=== PATIENT | male | born 1945 | race African-American/Black ===

== ENCOUNTER 2017-09-09 19:30 | Emergency (ER) | payer MEDICARE | END 2017-09-09 20:14 | LOC: D.ER 19:30 | DX: Z00.00 Encounter for general adult medical examination without abnormal findings (principal) ==

== ENCOUNTER 2020-09-30 06:43 | Inpatient (IN) | payer MEDICARE ==
[~2020-09-30] VITALS: Ht 188 cm; Wt 63.6 kg
[2020-09-30 09:14] LABS: ANION GAP 17.1 mmol/L (8-16); APTT 33.9 SECONDS (22.8-39.4); CALCIUM 9.4 mg/dL (8.5-10.1); CARBON DIOXIDE 24.3 mmol/L (21.0-32.0); INR 1.54 (0.85-1.17); POTASSIUM - SERUM 4.4 mmol/L (3.5-5.1); PROTIME 17.2 SECONDS (11.6-15.0)
[2020-09-30 09:19] LABS: HEMOGLOBIN 14.7 g/dL (13.5-17.5); LYMPHOCYTE ABS# 2.59 10x3/uL (1.32-3.57); MCH 29.7 pg (26.0-34.0); MCHC 34.2 g/dL (31.0-37.0); MCV 86.9 fL (80.0-100.0); MEAN PLATELET VOLUME 10.5 fL (7.4-10.4); NEUTROPHIL ABS# 17.26 10x3/uL (1.78-5.38); PLATELET COUNT 222 10x3/uL (130-400); RBC 4.95 10x6/uL (4.20-6.10); RDW 12.8 % (11.5-14.5); WBC 21.8 10x3/uL (4.8-10.8)
[2020-09-30 09:21] LABS: ALBUMIN 3.2 g/dL (3.4-5.0); BILIRUBIN - TOTAL 1.29 mg/dL (0.2-1.3); PROTEIN - SERUM 8.3 g/dL (6.4-8.2)
[2020-09-30 11:22] LABS: LYMPHOCYTES 12 % (15-50); MONOCYTES 15 % (2-11); NEUTROPHILS 70 % (40-80); PLATELET ESTIMATE NORMAL
--- NOTE | 2020-09-30 13:13 | NUR ---
PT MEDS STARTED WHEN SCANNED, PT DID NOT HAVE ROOM. INFORMED PHARMACY THT HIS MEDS MAY NEED TO BE RETIMED
--- NOTE | 2020-09-30 13:39 | NUR ---
CANNOT OBTAIN ACCURATE O2, HAS ORDERD ABG TO VERIFY O2 SAT
--- NOTE | 2020-09-30 14:00 | NUR ---
PT SAT IS 95% WITH ABG VERIFICATION
[2020-09-30 14:01] VITALS: BP 142/85
--- NOTE | 2020-09-30 14:14 | NUR ---
PT HAS CONSULT WITH [facility] AND [facility] HAS ALREADY OBTAIN CONFIRMATION THAT KNOWS AND WILL BE HERE LATER TO ASSESS PT
--- NOTE | 2020-09-30 15:20 | NUR ---
PEDIAL PULSES NOT OBTAINED, USED DOPPLER, MD PRESENT AND AWARE NO PULSES IN BILATERAL FEET.
--- NOTE | 2020-09-30 16:37 | NUR ---
pt HAS SKIN TEAR ON COCCYX, ADN BLISTER ON PENIS.
--- NOTE | 2020-09-30 16:52 | NUR ---
PT WEARING scd'S
[2020-09-30 17:06] VITALS: BP 147/81
[2020-09-30 20:30] VITALS: BP 119/93
[2020-09-30 22:30] VITALS: BP 120/76
[2020-10-01 00:30] VITALS: BP 127/76
[2020-10-01 02:30] VITALS: BP 155/77
[2020-10-01 04:47] VITALS: BP 119/92
[2020-10-01 06:47] VITALS: BP 119/73
--- NOTE | 2020-10-01 07:10 | NUR ---
PATIENT SITTING UP IN BED WATCHING TV. NO C/O.
[2020-10-01 07:51] LABS: LYMPHOCYTES 4.5 % (15-50); MCH 29.6 pg (26.0-34.0); MCHC 33.8 g/dL (31.0-37.0); MCV 87.6 fL (80.0-100.0); MEAN PLATELET VOLUME 10.8 fL (7.4-10.4); NEUTROPHILS 87.9 % (40-80); PLATELET COUNT 196 10x3/uL (130-400); RDW 12.9 % (11.5-14.5); WBC 18.3 10x3/uL (4.8-10.8)
[2020-10-01 08:04] LABS: HEMOGLOBIN 11.5 g/dL (13.5-17.5); RBC 3.88 10x6/uL (4.20-6.10)
[2020-10-01 08:07] LABS: ANION GAP 15.1 mmol/L (8-16); BILIRUBIN - TOTAL 0.84 mg/dL (0.2-1.3); CALCIUM 7.7 mg/dL (8.5-10.1); CARBON DIOXIDE 21.8 mmol/L (21.0-32.0); PHOSPHOROUS 2.6 mg/dL (2.5-4.9); POTASSIUM - SERUM 3.9 mmol/L (3.5-5.1); VANCOMYCIN - RANDOM 3.4 ug/mL (10.0-20.0)
[2020-10-01 08:13] LABS: CREATININE - SERUM 1.1 mg/dL (0.6-1.3)
[2020-10-01 08:15] LABS: ALBUMIN 2.3 g/dL (3.4-5.0); PROTEIN - SERUM 5.6 g/dL (6.4-8.2)
[2020-10-01 09:00] VITALS: BP 107/84
--- NOTE | 2020-10-01 12:30 | NUR ---
BATH AND LINEN CHANGE. BUTTOCKS HAVE DRY SCALING SKIN WITH OPEN SEVERAL OPEN ABRASION TYPE WOUNDS. LOTION TO DRY SKIN AND MEPILEX TO OPEN WOUNDS.
--- NOTE | 2020-10-01 13:35 | NUR ---
PT IN ROOM. PATIENT HAS URINE ON SHEETS AND GOWN. ABSORBENT BRIEF OFFERED AND PT AGREEABLE. LINENS CHANGED. MEPILEX HAS NOT ADHERED DUE TO SCALY SKIN.
[2020-10-01 13:53] VITALS: BMI 20.8
--- NOTE | 2020-10-01 21:00 | NUR ---
PT ARRIVED TO FLOOR VIA STRETCHER. TRANSFERED SELF TO BED. MULTIPLE WOUNDS TO BODY, FINGERS AND FEET, SEE ASSESSMENT. PT HAD VOIDED ON HIMSELF. CHANGED LINENS, JENNY CARE PROVIDED, CHANGED TO NEW BRIEF. PROVIDED PT WITH URINAL. PT STATES NO PAIN AT THIS TIME. IV RIGHT FA INFUSING NS @ 125. PROVIDED TURKEY SANDWICH AND COFFEE. DENIES OTHER NEEDS. CL IN REACH
[2020-10-02 01:33] VITALS: BP 120/72; Ht 188 cm; Wt 63.6 kg
[2020-10-02 04:00] VITALS: BP 115/65
--- NOTE | 2020-10-02 05:45 | NUR ---
PT PROVIDED COFFEE AND COLA
[2020-10-02 06:17] LABS: BASOPHILS 0.1 % (0-2); EOSINOPHILS 0.1 % (0-7); HEMATOCRIT 33.4 % (42.0-54.0); IMMATURE GRANULOCYTES 1.2 % (0-5); LYMPHOCYTE ABS# 1.34 10x3/uL (1.32-3.57); LYMPHOCYTES 7.6 % (15-50); MCH 29.3 pg (26.0-34.0); MCHC 32.9 g/dL (31.0-37.0); MCV 88.8 fL (80.0-100.0); MEAN PLATELET VOLUME 11.4 fL (7.4-10.4); MONOCYTES 11.5 % (2-11); NEUTROPHIL ABS# 13.99 10x3/uL (1.78-5.38); NEUTROPHILS 79.5 % (40-80); PLATELET COUNT 211 10x3/uL (130-400); RBC 3.76 10x6/uL (4.20-6.10); RDW 13.2 % (11.5-14.5); WBC 17.6 10x3/uL (4.8-10.8)
[2020-10-02 06:19] LABS: ALBUMIN 1.9 g/dL (3.4-5.0); ALKALINE PHOSPHATASE 69 U/L (30-120); ALT (SGPT) 81 U/L (10-68); BILIRUBIN - TOTAL 0.58 mg/dL (0.2-1.3); CALCIUM 7.9 mg/dL (8.5-10.1); CARBON DIOXIDE 22.6 mmol/L (21.0-32.0); CHLORIDE - SERUM 103 mmol/L (98-107); GLUCOSE 126 mg/dL (74-106); MAGNESIUM - SERUM 1.8 mg/dL (1.8-2.4); PHOSPHOROUS 2.2 mg/dL (2.5-4.9); POTASSIUM - SERUM 3.5 mmol/L (3.5-5.1); PROTEIN - SERUM 6.2 g/dL (6.4-8.2); SODIUM 135 mmol/L (136-145); eGFR NON AFRICAN AMERICAN 78 mL/min (90-120)
[2020-10-02 06:52] LABS: CALC OSMOLALITY 273 mosm/kg (275-300); UREA NITROGEN 17 mg/dL (7-18)
--- NOTE | 2020-10-02 08:06 | NUR ---
PATIENT ASLEEP IN BED, EASILY AWAKENED, NO NEEDS VOICED AT THIS TIME. CONTINUE WITH PLAN OF CARE
[2020-10-02 08:33] VITALS: BP 127/74
--- NOTE | 2020-10-02 12:55 | NUR ---
NS INFUSION RATE CHANGED TO 75/HR PER ORDER.
[2020-10-02 13:12] LABS: HEPATITIS C ANTIBODY <0.1 S/CO RAT (0.0-0.9)
[2020-10-02 14:00] VITALS: BP 129/70
--- NOTE | 2020-10-02 14:36 | NUR ---
OT NOTE: PT WITH LESS CONFUSION NOTED TODAY. ORIENTED X PERSON AND PLACE..ONLY 1 DAY OFF FOR DATE. PERFORMED B UE AROM EXS; GROSS MOTOR ROM AND COORDINATION TASKS. BED MOB AND EOB SITTING TO IMPROVE TRUNK STRENGTH AND ENDURANCE. ADL TRAINING BUT PT CONT TO HAVE DEFECITS DUE TO DECREASED MOTOR COORD IN HANDS. LIS NAVA, OTR/L [phone]
[2020-10-02 17:07] VITALS: BP 136/76
--- NOTE | 2020-10-02 20:20 | NUR ---
AWAKE,ALERT WATCHING TV QUEITLY. NO DISTRESS NOTED. NO COMPLIANTS VOICED.IV TO RFA INTACT WITHOUT REDNESS OR EDEMA NOTED.CL IN REACH
[2020-10-02 20:21] VITALS: BP 120/85; BP 131/70
[2020-10-03 00:22] VITALS: BP 117/71
--- NOTE | 2020-10-03 00:28 | NUR ---
Pt was found to have BM on him, bedding and all around toilet seat. Pt assisted to clean and change and then back to bed.
--- NOTE | 2020-10-03 03:00 | NUR ---
I have reviewed this patient and I concur with the Shift Assessment completed by the Licensed Practical Nurse today this shift.
[2020-10-03 05:26] VITALS: BP 132/76
[2020-10-03 05:52] LABS: BASOPHILS 0.1 % (0-2); EOSINOPHILS 0.5 % (0-7); HEMATOCRIT 33.5 % (42.0-54.0); HEMOGLOBIN 10.9 g/dL (13.5-17.5); IMMATURE GRANULOCYTES 0.8 % (0-5); LYMPHOCYTE ABS# 1.58 10x3/uL (1.32-3.57); LYMPHOCYTES 9.1 % (15-50); MCH 28.9 pg (26.0-34.0); MCHC 32.5 g/dL (31.0-37.0); MCV 88.9 fL (80.0-100.0); MONOCYTES 5.8 % (2-11); NEUTROPHIL ABS# 14.58 10x3/uL (1.78-5.38); NEUTROPHILS 83.7 % (40-80); PLATELET COUNT 248 10x3/uL (130-400); RBC 3.77 10x6/uL (4.20-6.10); RDW 13.2 % (11.5-14.5); WBC 17.4 10x3/uL (4.8-10.8)
[2020-10-03 06:39] LABS: ALBUMIN 1.8 g/dL (3.4-5.0); ALKALINE PHOSPHATASE 82 U/L (30-120); ALT (SGPT) 75 U/L (10-68); BILIRUBIN - TOTAL 0.45 mg/dL (0.2-1.3); CALCIUM 7.6 mg/dL (8.5-10.1); CARBON DIOXIDE 24.4 mmol/L (21.0-32.0); CHLORIDE - SERUM 101 mmol/L (98-107); GLUCOSE 146 mg/dL (74-106); MAGNESIUM - SERUM 1.5 mg/dL (1.8-2.4); PHOSPHOROUS 2.3 mg/dL (2.5-4.9); POTASSIUM - SERUM 3.5 mmol/L (3.5-5.1); PROTEIN - SERUM 6.3 g/dL (6.4-8.2); SODIUM 133 mmol/L (136-145); eGFR NON AFRICAN AMERICAN 78 mL/min (90-120)
[2020-10-03 06:40] LABS: CALC OSMOLALITY 267 mosm/kg (275-300); UREA NITROGEN 10 mg/dL (7-18)
[2020-10-03 08:10] VITALS: BP 113/64
--- NOTE | 2020-10-03 09:51 | NUR ---
PT ALERT AND ORIENTED, ASSISTED WITH STANDING ON SCALE, PT STATES HE'S FEELING A LITTLE WEAK THIS MORNING. TOOK ALL MEDICATIONS WITHOUT COMPLICATIONS. NO COMPLAINTS OR CONERNS AT THIS TIME. CL IN REACH, SRX2.
[2020-10-03 11:59] VITALS: BP 133/75
--- NOTE | 2020-10-03 13:59 | NUR ---
I have reviewed this patient and I concur with the Shift Assessment completed by the Licensed Practical Nurse today this shift.
[2020-10-03 17:21] VITALS: BP 119/73
--- NOTE | 2020-10-03 20:30 | NUR ---
LYING QUIETLY WITH NO DISTRESS NOTED. RESP UNALBORED. IV TO [place] INTACT WITHOUT REDNESS OR EDEMA NOTED. CL IN REACH
[2020-10-03 21:51] VITALS: BP 150/77
[2020-10-04 01:18] VITALS: BP 150/87
--- NOTE | 2020-10-04 04:11 | NUR ---
I have reviewed this patient and I concur with the Shift Assessment completed by the Licensed Practical Nurse today this shift.
[2020-10-04 04:30] LABS: BASOPHILS 0.1 % (0-2); EOSINOPHILS 0.3 % (0-7); HEMATOCRIT 35.2 % (42.0-54.0); HEMOGLOBIN 11.9 g/dL (13.5-17.5); IMMATURE GRANULOCYTES 0.5 % (0-5); LYMPHOCYTE ABS# 1.62 10x3/uL (1.32-3.57); LYMPHOCYTES 12.1 % (15-50); MCH 29.8 pg (26.0-34.0); MCHC 33.8 g/dL (31.0-37.0); MCV 88.2 fL (80.0-100.0); MEAN PLATELET VOLUME 10.1 fL (7.4-10.4); MONOCYTES 9.3 % (2-11); NEUTROPHIL ABS# 10.38 10x3/uL (1.78-5.38); NEUTROPHILS 77.7 % (40-80); PLATELET COUNT 271 10x3/uL (130-400); RBC 3.99 10x6/uL (4.20-6.10); RDW 13.1 % (11.5-14.5); WBC 13.4 10x3/uL (4.8-10.8)
[2020-10-04 04:55] LABS: ALBUMIN 1.7 g/dL (3.4-5.0); ALKALINE PHOSPHATASE 74 U/L (30-120); ALT (SGPT) 64 U/L (10-68); BILIRUBIN - TOTAL 0.36 mg/dL (0.2-1.3); CALC OSMOLALITY 266 mosm/kg (275-300); CALCIUM 7.6 mg/dL (8.5-10.1); CARBON DIOXIDE 25.7 mmol/L (21.0-32.0); CHLORIDE - SERUM 101 mmol/L (98-107); CREATININE - SERUM 0.9 mg/dL (0.6-1.3); GLUCOSE 101 mg/dL (74-106); MAGNESIUM - SERUM 1.6 mg/dL (1.8-2.4); POTASSIUM - SERUM 3.5 mmol/L (3.5-5.1); PROTEIN - SERUM 6.5 g/dL (6.4-8.2); SODIUM 134 mmol/L (136-145); UREA NITROGEN 10 mg/dL (7-18); eGFR NON AFRICAN AMERICAN 88 mL/min (90-120)
[2020-10-04 05:56] VITALS: BP 135/82
--- NOTE | 2020-10-04 07:24 | NUR ---
RESTING IN BED WITH EYES CLOSED, EASILY AROUSED TO SPEECH. IV LOCATED TO RIGHT UPPER ARM CURRENTLY RUNNING NS @ 75. NO CURRENT S/S OF DISTRESS, DENIES CURRENT NEEDS, WILL CONT TO MONITOR.
[2020-10-04 08:39] VITALS: BP 142/81
[2020-10-04 13:31] VITALS: BP 105/70
[2020-10-04 17:06] VITALS: BP 137/84
[2020-10-04 20:51] VITALS: BP 138/72
--- NOTE | 2020-10-04 21:00 | NUR ---
AWAKE,ALERT. NO COMPLAINTS VOICED. IV RESITED TO RFA WITH 22G X 1 ATTEMPT. TOLEREATED WELL. CL IN REACH
[2020-10-05 00:47] VITALS: BP 145/98
--- NOTE | 2020-10-05 05:50 | NUR ---
I have reviewed this patient and I concur with the Shift Assessment completed by the Licensed Practical Nurse today this shift.
[2020-10-05 06:34] LABS: BASOPHILS 0.2 % (0-2); EOSINOPHILS 0.4 % (0-7); HEMATOCRIT 34.8 % (42.0-54.0); HEMOGLOBIN 11.5 g/dL (13.5-17.5); IMMATURE GRANULOCYTES 0.7 % (0-5); LYMPHOCYTE ABS# 1.62 10x3/uL (1.32-3.57); LYMPHOCYTES 13.2 % (15-50); MCH 29.3 pg (26.0-34.0); MCV 88.8 fL (80.0-100.0); MEAN PLATELET VOLUME 10.1 fL (7.4-10.4); NEUTROPHILS 75.5 % (40-80); PLATELET COUNT 294 10x3/uL (130-400); RBC 3.92 10x6/uL (4.20-6.10); RDW 13.3 % (11.5-14.5); WBC 12.3 10x3/uL (4.8-10.8)
[2020-10-05 06:36] VITALS: BP 142/69
[2020-10-05 06:39] LABS: ALBUMIN 1.8 g/dL (3.4-5.0); ALKALINE PHOSPHATASE 72 U/L (30-120); ALT (SGPT) 53 U/L (10-68); BILIRUBIN - TOTAL 0.32 mg/dL (0.2-1.3); CALC OSMOLALITY 266 mosm/kg (275-300); CARBON DIOXIDE 25.4 mmol/L (21.0-32.0); CHLORIDE - SERUM 101 mmol/L (98-107); CREATININE - SERUM 0.8 mg/dL (0.6-1.3); GLUCOSE 104 mg/dL (74-106); MAGNESIUM - SERUM 1.5 mg/dL (1.8-2.4); POTASSIUM - SERUM 3.6 mmol/L (3.5-5.1); PROTEIN - SERUM 6.6 g/dL (6.4-8.2); SODIUM 134 mmol/L (136-145); UREA NITROGEN 9 mg/dL (7-18); eGFR NON AFRICAN AMERICAN > 90 mL/min (90-120)
--- NOTE | 2020-10-05 08:09 | NUR ---
PT AWAKE, LAYING ON BACK IN BED. NO NEEDS AT THIS TIME. STATES THERE IS SOME PAIN IN HIS TOES. CL IN REACH. WCTM
[2020-10-05 08:34] VITALS: BP 153/71
[2020-10-05 11:49] VITALS: BP 152/91
--- NOTE | 2020-10-05 14:05 | NUR ---
Rehab referral received. Patient chart has been reviewed and at this time, with patients current status and non extisting comorbidities, until this hospital stay , it is recommended that patient discharge to a SNF. Thank you for this referral. Elle Braxton LPN Rehab Computer Engineering Technologist
[2020-10-05 14:22] LABS: ERYTHROCYTE SEDIMENTATION RATE 119 mm/hr (0-20)
--- NOTE | 2020-10-05 15:15 | NUR ---
Nutrition follow-up: Pt receiving a low sodium diet PO intake poor at this time Labs reviewed; albumin low Wt: 160# +BM Recommendations: Pt may benefit from an appetite stimulant due to poor po intake RDN will order Ensure with meals Follow-up: 10/07/20
--- NOTE | 2020-10-05 15:24 | NUR ---
OT NOTE: PT COMPLETED BED MOB WITH SBA. PT COMPLETED SUPINE TO SIT WITH SBA-CGA. PT COMPLETED SITTING BALANCE AT EOB WITH SBA. PT REQUIRED MIN A FOR SAUL/NORIS BRIEFS. PT COMPLETED UB BATHING TASKS WITH MIN A. PT COMPLETED LB BATHING TASKS EXCLUDING FEET WITH MIN A. VALVE INSERTER STATED NOT TO STAND PT BUT HAVE HIM SIT AT EOB. NURSING NOTIFIED. [phone] THANK YOU,JESSICA LONDONO
[2020-10-05 15:55] VITALS: BP 138/75
[2020-10-05 19:52] VITALS: BP 141/76
--- NOTE | 2020-10-05 21:50 | NUR ---
PT RESTING IN BED. NO PAIN NOR DISTRESS ADDRESSED OR NOTED AT THIS TIME. BED IN LOWEST POSITON WITH ALARM ACTIVATED. CALL LIGHT IN REACH.
[2020-10-06] VITALS: BP 135/81
[2020-10-06 04:00] VITALS: BP 143/76
--- NOTE | 2020-10-06 05:58 | NUR ---
PT RESTED WELL THROUGHOUT SHIFT. BLOOD GLUCOSE WITHIN NORMAL LIMITS. NO NEEDS AT THIS TIME.
[2020-10-06 06:26] LABS: ALBUMIN 1.7 g/dL (3.4-5.0); ALKALINE PHOSPHATASE 68 U/L (30-120); ALT (SGPT) 46 U/L (10-68); BILIRUBIN - TOTAL 0.42 mg/dL (0.2-1.3); CALC OSMOLALITY 268 mosm/kg (275-300); CARBON DIOXIDE 24.7 mmol/L (21.0-32.0); CHLORIDE - SERUM 101 mmol/L (98-107); CREATININE - SERUM 0.9 mg/dL (0.6-1.3); GLUCOSE 113 mg/dL (74-106); POTASSIUM - SERUM 3.4 mmol/L (3.5-5.1); PROTEIN - SERUM 6.4 g/dL (6.4-8.2); SODIUM 135 mmol/L (136-145); UREA NITROGEN 8 mg/dL (7-18); eGFR NON AFRICAN AMERICAN 88 mL/min (90-120)
[2020-10-06 06:52] LABS: BASOPHILS 0.2 % (0-2); EOSINOPHILS 0.4 % (0-7); HEMATOCRIT 33.3 % (42.0-54.0); IMMATURE GRANULOCYTES 0.4 % (0-5); LYMPHOCYTE ABS# 1.09 10x3/uL (1.32-3.57); LYMPHOCYTES 9.2 % (15-50); MCH 29.2 pg (26.0-34.0); MCV 88.3 fL (80.0-100.0); MEAN PLATELET VOLUME 10.2 fL (7.4-10.4); MONOCYTES 10.6 % (2-11); NEUTROPHIL ABS# 9.33 10x3/uL (1.78-5.38); NEUTROPHILS 79.2 % (40-80); RBC 3.77 10x6/uL (4.20-6.10); RDW 13.2 % (11.5-14.5); WBC 11.8 10x3/uL (4.8-10.8)
[2020-10-06 06:53] LABS: PLATELET COUNT 355 10x3/uL (130-400)
--- NOTE | 2020-10-06 07:24 | NUR ---
PT AWAKE LAYING IN BED AT THIS TIME. CL IN REACH. BED ALARM ON. NO NEEDS AT THIS TIME. WCTM
[2020-10-06 09:03] LABS: MAGNESIUM - SERUM 1.8 mg/dL (1.8-2.4); VANCOMYCIN - TROUGH 11.6 ug/mL (10.0-20.0)
[2020-10-06 10:39] VITALS: BP 140/79
[2020-10-06 14:14] VITALS: BP 113/67
--- NOTE | 2020-10-06 14:59 | NUR ---
OT NOTE: PRACTICED BED MOB INCLUDING ROLLING SIDE TO SIDE AND SUPINE TO SIT/SIT TO SUPINE WITH MIN/MOD ASSIST; PERFORMED GROSS MOTOR EXS WITH UES TO IMPROVE ADLS. LIS NAVA, OTR/L [phone]
[2020-10-06 18:28] VITALS: BP 112/64
[2020-10-06 20:00] VITALS: BP 144/86
--- NOTE | 2020-10-06 20:26 | NUR ---
rec'd walking rounds chge of shift lying on left side eyes closed res. deep and even.will continue to monitor for any chges and follow current plan of care.
[2020-10-07] VITALS: BP 139/78
[2020-10-07 04:00] VITALS: BP 121/76
[2020-10-07 05:32] LABS: BASOPHILS 0.1 % (0-2); EOSINOPHILS 0.7 % (0-7); HEMATOCRIT 33.9 % (42.0-54.0); HEMOGLOBIN 11.1 g/dL (13.5-17.5); IMMATURE GRANULOCYTES 0.5 % (0-5); LYMPHOCYTE ABS# 1.48 10x3/uL (1.32-3.57); LYMPHOCYTES 13.8 % (15-50); MCH 28.9 pg (26.0-34.0); MCHC 32.7 g/dL (31.0-37.0); MCV 88.3 fL (80.0-100.0); MEAN PLATELET VOLUME 9.9 fL (7.4-10.4); MONOCYTES 9.4 % (2-11); NEUTROPHIL ABS# 8.13 10x3/uL (1.78-5.38); NEUTROPHILS 75.5 % (40-80); PLATELET COUNT 400 10x3/uL (130-400); RBC 3.84 10x6/uL (4.20-6.10); RDW 13.3 % (11.5-14.5); WBC 10.8 10x3/uL (4.8-10.8)
--- NOTE | 2020-10-07 05:52 | NUR ---
I have reviewed this patient and I concur with the Shift Assessment completed by the Licensed Practical Nurse today this shift.
[2020-10-07 06:12] LABS: ALBUMIN 1.7 g/dL (3.4-5.0); ALKALINE PHOSPHATASE 71 U/L (30-120); ALT (SGPT) 40 U/L (10-68); BILIRUBIN - TOTAL 0.42 mg/dL (0.2-1.3); CALC OSMOLALITY 268 mosm/kg (275-300); CALCIUM 8.4 mg/dL (8.5-10.1); CARBON DIOXIDE 24.8 mmol/L (21.0-32.0); CHLORIDE - SERUM 102 mmol/L (98-107); CREATININE - SERUM 0.8 mg/dL (0.6-1.3); GLUCOSE 98 mg/dL (74-106); PROTEIN - SERUM 6.5 g/dL (6.4-8.2); SODIUM 135 mmol/L (136-145); UREA NITROGEN 10 mg/dL (7-18); eGFR NON AFRICAN AMERICAN > 90 mL/min (90-120)
[2020-10-07 06:14] LABS: POTASSIUM - SERUM 4.1 mmol/L (3.5-5.1)
[2020-10-07 09:28] VITALS: BP 162/78
[2020-10-07 10:47] LABS: ERYTHROCYTE SEDIMENTATION RATE 125 mm/hr (0-20)
[2020-10-07 12:31] VITALS: BP 124/80
--- NOTE | 2020-10-07 13:43 | NUR ---
Nutrition reassessment: Diet order: low sodium PO intake 75-100% of some meals Labs reviewed Ht: 6'2" Wt: 146# IBW: 190# +/-10% BMI: 18.7 Labs reviewed Estimated needs: 8266-9952 kcal (25-35 kcal/kg Acual BW) 66-85 g protein (1.0-1.3 gm/kg Actual BW) 6700-3882 ml fluid - or per MD order Nutrition diagnosis: Moderate malnutrition of acute illness R/T frotsbitten feet AEB the following criteria: - BMI: 18.7 - 8% weight loss since admit - 160# bedscale on admit - now 146# bedscale Goals: - PO intake =/> 75% of meals, snacks - Meet at least 75% of estimate fluid needs - Stable wt with gradual increase to UBW of 162# Interventions: Will provide food choices and honor food preferences. Will offer and encourage increased protein intake Follow-up: 10/12/20
--- NOTE | 2020-10-07 15:36 | NUR ---
OT NOTE: PT COMPLETED SUPINE TO SIT WITH SBA. PT COMPLETED BUE AROM EXERCISES AT EOB WITH SBA. PT COMPLETED ORAL CARE WITH SETUP. PT COMPLETED FACE HYGIENE WITH SETUP. [phone] THANK YOU,JESSICA LONDONO
[2020-10-07 16:56] VITALS: BP 113/56
[2020-10-07 20:00] VITALS: BP 134/58
[2020-10-08 04:00] VITALS: BP 154/71
[2020-10-08 06:39] LABS: BASOPHILS 0.3 % (0-2); EOSINOPHILS 0.7 % (0-7); HEMATOCRIT 32.8 % (42.0-54.0); HEMOGLOBIN 10.6 g/dL (13.5-17.5); IMMATURE GRANULOCYTES 0.5 % (0-5); LYMPHOCYTE ABS# 1.63 10x3/uL (1.32-3.57); LYMPHOCYTES 15.3 % (15-50); MCH 28.3 pg (26.0-34.0); MCHC 32.3 g/dL (31.0-37.0); MCV 87.7 fL (80.0-100.0); MEAN PLATELET VOLUME 9.8 fL (7.4-10.4); NEUTROPHIL ABS# 7.73 10x3/uL (1.78-5.38); NEUTROPHILS 72.2 % (40-80); PLATELET COUNT 435 10x3/uL (130-400); RBC 3.74 10x6/uL (4.20-6.10); RDW 13.1 % (11.5-14.5); WBC 10.7 10x3/uL (4.8-10.8)
[2020-10-08 06:41] LABS: ALBUMIN 1.9 g/dL (3.4-5.0); ALKALINE PHOSPHATASE 72 U/L (30-120); ALT (SGPT) 35 U/L (10-68); BILIRUBIN - TOTAL 0.34 mg/dL (0.2-1.3); CALC OSMOLALITY 266 mosm/kg (275-300); CALCIUM 8.5 mg/dL (8.5-10.1); CHLORIDE - SERUM 101 mmol/L (98-107); CREATININE - SERUM 0.8 mg/dL (0.6-1.3); GLUCOSE 94 mg/dL (74-106); POTASSIUM - SERUM 4.3 mmol/L (3.5-5.1); PROTEIN - SERUM 5.9 g/dL (6.4-8.2); SODIUM 134 mmol/L (136-145); UREA NITROGEN 10 mg/dL (7-18); eGFR NON AFRICAN AMERICAN > 90 mL/min (90-120)
[2020-10-08 07:51] VITALS: BP 118/76
[2020-10-08 11:05] VITALS: BP 114/60
--- NOTE | 2020-10-08 14:32 | MORECARE ---
CASE MANAGEMENT DISCHARGE SUMMARY PATIENT: KATHRYN GAUTHIER UNIT: [id number] ADM DATE: 09/30/20 AGE: 75 : 47 SEX: M ROOM/BED: D.2205 AUTHOR: ELIZABETH PEARCE PHYSICIAN: REFERRING PHYSICIAN: JOHNNIE MOLINA MD DATE OF SERVICE: 10/08/20 Discharge Plan Patient Name: KATHRYN GAUTHIER [facility] [facility] 1945 Planned Disposition: Home with Home Health Anticipated Discharge Date: Discharge Date: Expected LOS: Initial Reviewer: [email or web address] Initial Review Date: 09/30/2020 Generated: 10/08/20 3:31 pm DCPIA - Discharge Planning Initial Assessment Updated by [email or web address]: Gisella Washington on 10/08/20 2:28 pm * Is the patient Alert and Oriented? Yes * PCP MERARY? TRISHA? * Pharmacy [facility] * Preadmission Environment Home Alone * ADLs Independent * Equipment None * Verbal permission to speak to the caregivers and representatives has been obtained from the patient. N/A * Community resources currently utilized None * Additional services required to return to the preadmission environment? Yes * Can the patient safely return to the preadmission environment? Yes * Has this patient been hospitalized within the prior 30 days at any hospital? No Patient Name: KATHRYN GAUTHIER Page [phone] at 1432 All edits/amendments must be made on the electronic document DICTATION DATE: 10/08/20 1431 SUPERVISOR MACHINE SETTER: DARRELL 10/08/20 1431 RPT#: [id number] DC DATE: STATUS: ADM IN [facility] [address] [place] [address] END OF REPORT
--- NOTE | 2020-10-08 14:40 | MORECARE ---
CASE MANAGEMENT DISCHARGE SUMMARY PATIENT: KATHRYN GAUTHIER UNIT: [id number] ADM DATE: 09/30/20 AGE: 75 : 47 SEX: M ROOM/BED: D.2205 AUTHOR: PORTIADOC PHYSICIAN: REFERRING PHYSICIAN: JOHNNIE MOLINA MD DATE OF SERVICE: 10/08/20 Discharge Plan Patient Name: KATHRYN GAUTHIER Facility: [facility]:[place] : 1945 Planned Disposition: Home with Home Health Anticipated Discharge Date: Discharge Date: Expected LOS: Initial Reviewer: [email or web address] Initial Review Date: 09/30/2020 Generated: 10/08/20 3:40 pm Comments DCP- Discharge Planning Updated by [id number]: Gisella Washington on 10/08/20 1:[address] Patient Name: KATHRYN GAUTHIER Admission Status: ER Accout number: [id number] Admission Date: 09-30-2020 : 1945 Admission Diagnosis:SEPSIS, UNSPECIFIED ORGANISM Attending: JOHNNIE MOLINA Current LOS: 8 Anticipated DC Date: Planned Disposition: Home with Home Health Primary Insurance: MEDICARE A & B Discharge Planning Comments: CM met with patient to complete initial dc planning assessment. CM educated patient on the CM role and verbal consent given by patient to complete assessment. Patient lives at home by himself where he states he is independent. He is very hard to understand, but says he is safe to discharge home. He states he has running water and electricity at home. He got that fixed. At discharge patient plans to return home and feels this is a safe discharge. CM discussed availability of home health, rehab services, and medical equipment. He would like to have home health. SEBASTIAN with [facility], IMM served and explained. He will need a walker when he is discharged. He did not want to go to rehab. He stated that he has money to get his medications & [facility] Patient denied known discharge needs at this time. CM will continue to follow and will assist as needed with dc plans/needs Core Shaper: Gisella Washington DCPIA - Discharge Planning Initial Assessment Updated by [email or web address]: Gisella Washington on 10/08/20 2:28 pm * Is the patient Alert and Oriented? Yes * PCP MERARY? TRISHA? * Pharmacy [facility] * Preadmission Environment Home Alone * ADLs Independent * Equipment None * Verbal permission to speak to the caregivers and representatives has been obtained from the patient. N/A * Community resources currently utilized None * Additional services required to return to the preadmission environment? Yes * Can the patient safely return to the preadmission environment? Yes * Has this patient been hospitalized within the prior 30 days at any hospital? No Coverage Notice Reviewer: [id number] Washington Notice Issued Date-Time: 10/08/2020 13:40 Notice Type: IM Discharge Notice Notice Delivered To: Patient Relationship to Patient: Bearingizer Name: Delivery Method: HAND - Hand Delivered Ami Days: Prior Verbal Notification: Recipient Understood Notice: Yes Recipient Signature: Yes Med Rec Note Co-signed by Attending: Coverage Notice Comment: Reviewer: [id number] Washington Notice Issued Date-Time: 10/08/2020 13:40 Notice Type: Patient Choice Letter Notice Delivered To: Patient Relationship to Patient: Bearingizer Name: Delivery Method: HAND - Hand Delivered Ami Days: Prior Verbal Notification: Recipient Understood Notice: Yes Recipient Signature: Yes Med Rec Note Co-signed by Attending: Coverage Notice Comment: home health - care iv Last DP export: 10/08/20 1:32 pm Patient Name: KATHRYN GAUTHIER Page [phone] at 1440 All edits/amendments must be made on the electronic document DICTATION DATE: 10/08/20 144 CENTRAL SUPPLY NURSE: DARRELL 10/08/20 1440 RPT#: [id number] DC DATE: STATUS: ADM IN [facility] [address] [place] [address] END OF REPORT
--- NOTE | 2020-10-08 14:53 | MORECARE ---
CASE MANAGEMENT DISCHARGE SUMMARY PATIENT: KATHRYN GAUTHIER UNIT: [id number] ADM DATE: 09/30/20 AGE: 75 : 47 SEX: M ROOM/BED: D.2205 AUTHOR: PORTIADOC PHYSICIAN: REFERRING PHYSICIAN: JOHNNIE MOLINA MD DATE OF SERVICE: 10/08/20 Discharge Plan Patient Name: KATHRYN GAUTHIER Facility: [facility]:[place] : 1945 Planned Disposition: Home with Home Health Anticipated Discharge Date: Discharge Date: Expected LOS: Initial Reviewer: [email or web address] Initial Review Date: 09/30/2020 Generated: 10/08/20 3:53 pm Comments DCP- Discharge Planning Updated by [id number]: Gisella Washington on 10/08/20 1:[address] Patient Name: KATHRYN GAUTHIER Admission Status: ER Accout number: [id number] Admission Date: 09-30-2020 : 1945 Admission Diagnosis:SEPSIS, UNSPECIFIED ORGANISM Attending: JOHNNIE MOLINA Current LOS: 8 Anticipated DC Date: Planned Disposition: Home with Home Health Primary Insurance: MEDICARE A & B Discharge Planning Comments: CM met with patient to complete initial dc planning assessment. CM educated patient on the CM role and verbal consent given by patient to complete assessment. Patient lives at home by himself where he states he is independent. He is very hard to understand, but says he is safe to discharge home. He states he has running water and electricity at home. He got that fixed. At discharge patient plans to return home and feels this is a safe discharge. CM discussed availability of home health, rehab services, and medical equipment. He would like to have home health. SEBASTIAN with Care [facility], IMM served and explained. He will need a walker when he is discharged. He did not want to go to rehab. He stated that he has money to get his medications & [facility] Patient denied known discharge needs at this time. CM will continue to follow and will assist as needed with dc plans/needs Fermentologist: Gisella Washington DCPIA - Discharge Planning Initial Assessment Updated by [email or web address]: Gisella Washington on 10/08/20 2:28 pm * Is the patient Alert and Oriented? Yes * PCP MERARY? TRISHA? * Pharmacy [facility] * Preadmission Environment Home Alone * ADLs Independent * Equipment None * Verbal permission to speak to the caregivers and representatives has been obtained from the patient. N/A * Community resources currently utilized None * Additional services required to return to the preadmission environment? Yes * Can the patient safely return to the preadmission environment? Yes * Has this patient been hospitalized within the prior 30 days at any hospital? No External Providers External Provider: [facility] Next Contact Date: Service Request Date: Service Type: Resolution: Reviewer: Comments: Coverage Notice Reviewer: [email or web address] Estela Washington Notice Issued Date-Time: 10/08/2020 13:40 Notice Type: IM Discharge Notice Notice Delivered To: Patient Relationship to Patient: Set Up Mechanic Name: Delivery Method: HAND - Hand Delivered Ami Days: Prior Verbal Notification: Recipient Understood Notice: Yes Recipient Signature: Yes Med Rec Note Co-signed by Attending: Coverage Notice Comment: Reviewer: [id number] Washington Notice Issued Date-Time: 10/08/2020 13:40 Notice Type: Patient Choice Letter Notice Delivered To: Patient Relationship to Patient: Set Up Mechanic Name: Delivery Method: HAND - Hand Delivered Ami Days: Prior Verbal Notification: Recipient Understood Notice: Yes Recipient Signature: Yes Med Rec Note Co-signed by Attending: Coverage Notice Comment: home health - care iv Last DP export: 10/08/20 1:40 pm Patient Name: KATHRYN GAUTHIER Page [phone] at 1453 All edits/amendments must be made on the electronic document DICTATION DATE: 10/08/20 1453 SUPERVISOR PAINT ROLLER COVERS: DARRELL 10/08/20 1453 RPT#: [id number] DC DATE: STATUS: ADM IN [facility] [address] [place] [address] END OF REPORT
--- NOTE | 2020-10-08 15:42 | NUR ---
OT NOTE: PT COMPLETED SUPINE TO SIT WITH SBA. PT COMPLETED SIDE ROLLING WITH SBA. PT COMPLETED FACE AND HAND HYGIENE WITH SETUP. PT COMPLETED ORAL HYGIENE WITH SET UP USING TOOTHETTE. [phone] THANK YOU,JESSICA LONDONO
[2020-10-08 16:48] VITALS: BP 113/68
[2020-10-08 20:00] VITALS: BP 105/51
[2020-10-09] VITALS: BP 133/68
--- NOTE | 2020-10-09 01:01 | NUR ---
ASSESSED AT THE BEGINNING OF THE SHIFT. PT IS ALERT AND ORIENTED WITH SOME CONFUSION.BOTH FEET ARE IN DRESSINGS FOR THE FROSTBITE. HIS HANDS WHICH ARE ALSO FROSTBITTEN ARE NOT DRESSED BUT HAVE DARK DRY SKIN. TAKING HIS BLOOD SUGAR ON HIS EARLOBE WAS DONE PER ORDER. HE IS USING A URINAL FOR VOIDING. HIS IV BECAME RED AND WAS REMOVED IN HIS RIGHT FOREARM. WE STARTED A NEW ONE WITH A 20 GAUGE IN HIS LEFT WRIST.
[2020-10-09 04:00] VITALS: BP 121/69
[2020-10-09 07:01] LABS: BASOPHILS 0.3 % (0-2); EOSINOPHILS 0.8 % (0-7); HEMATOCRIT 32.7 % (42.0-54.0); HEMOGLOBIN 10.6 g/dL (13.5-17.5); IMMATURE GRANULOCYTES 0.4 % (0-5); LYMPHOCYTE ABS# 1.72 10x3/uL (1.32-3.57); LYMPHOCYTES 16.9 % (15-50); MCH 28.6 pg (26.0-34.0); MCHC 32.4 g/dL (31.0-37.0); MCV 88.1 fL (80.0-100.0); MEAN PLATELET VOLUME 9.9 fL (7.4-10.4); NEUTROPHIL ABS# 7.49 10x3/uL (1.78-5.38); NEUTROPHILS 73.6 % (40-80); PLATELET COUNT 461 10x3/uL (130-400); RBC 3.71 10x6/uL (4.20-6.10); RDW 13.3 % (11.5-14.5); WBC 10.2 10x3/uL (4.8-10.8)
[2020-10-09 07:33] LABS: ALBUMIN 1.8 g/dL (3.4-5.0); ALKALINE PHOSPHATASE 73 U/L (30-120); ALT (SGPT) 30 U/L (10-68); CALC OSMOLALITY 266 mosm/kg (275-300); CALCIUM 8.3 mg/dL (8.5-10.1); CARBON DIOXIDE 24.7 mmol/L (21.0-32.0); CHLORIDE - SERUM 101 mmol/L (98-107); CREATININE - SERUM 0.8 mg/dL (0.6-1.3); GLUCOSE 102 mg/dL (74-106); POTASSIUM - SERUM 4.4 mmol/L (3.5-5.1); PROTEIN - SERUM 5.9 g/dL (6.4-8.2); SODIUM 134 mmol/L (136-145); UREA NITROGEN 10 mg/dL (7-18); eGFR NON AFRICAN AMERICAN > 90 mL/min (90-120)
[2020-10-09 07:44] VITALS: BP 137/81
--- NOTE | 2020-10-09 09:00 | NUR ---
ALERT AND ORIENTED TO SELF WITH FALL PRECAUTIONS IN PLACE. DRESSINGS INTACT TO BLE WITH TYLENOL GIVEN FOR PAIN 5/10. REQUIRES SET UP ASSSIT WITH MEALS. DISTAL DIGITS DISCOLORED WITH RADIAL PULSES NOTED. ENCOURAGED TO USE CALL LIGHT FOR ASSSIT
[2020-10-09 11:29] VITALS: BP 130/70
--- NOTE | 2020-10-09 14:05 | MORECARE ---
CASE MANAGEMENT DISCHARGE SUMMARY PATIENT: KATHRYN GAUTHIER UNIT: [id number] ADM DATE: 09/30/20 AGE: 75 : 47 SEX: M ROOM/BED: D.2205 AUTHOR: PORTIA,DOC PHYSICIAN: REFERRING PHYSICIAN: JOHNNIE MOLINA MD DATE OF SERVICE: 10/09/20 Discharge Plan Patient Name: KATHRYN GAUTHIER Facility: [facility]:[place] : 1945 Planned Disposition: Home with Home Health Anticipated Discharge Date: Discharge Date: Expected LOS: Initial Reviewer: [email or web address] Initial Review Date: 09/30/2020 Generated: 10/09/20 3:05 pm Comments DCP- Discharge Planning Updated by [email or web address]: Gisella Washington on 10/09/20 1:[address] WALKER ORDER FAXED TO [facility] HE WILL DELIVER TO THE ROOM DCP- Discharge Planning Updated by [id number]: Gisella Washington on 10/08/20 1:[address] Patient Name: KATHRYN GAUTHIER Admission Status: ER Accout number: [id number] Admission Date: 09-30-2020 : 1945 Admission Diagnosis:SEPSIS, UNSPECIFIED ORGANISM Attending: JOHNNIE MOLINA Current LOS: 8 Anticipated DC Date: Planned Disposition: Home with Home Health Primary Insurance: MEDICARE A & B Discharge Planning Comments: CM met with patient to complete initial dc planning assessment. CM educated patient on the CM role and verbal consent given by patient to complete assessment. Patient lives at home by himself where he states he is independent. He is very hard to understand, but says he is safe to discharge home. He states he has running water and electricity at home. He got that fixed. At discharge patient plans to return home and feels this is a safe discharge. CM discussed availability of home health, rehab services, and medical equipment. He would like to have home health. SEBASTIAN with [facility], IMM served and explained. He will need a walker when he is discharged. He did not want to go to rehab. He stated that he has money to get his medications [facility] Patient denied known discharge needs at this time. CM will continue to follow and will assist as needed with dc plans/needs Certified Midwife: Gisella Washington DCPIA - Discharge Planning Initial Assessment Updated by [email or web address]: Gisella Washington on 10/08/20 2:28 pm * Is the patient Alert and Oriented? Yes * PCP MERARY? TRISHA? * Pharmacy [facility] * Preadmission Environment Home Alone * ADLs Independent * Equipment None * Verbal permission to speak to the caregivers and representatives has been obtained from the patient. N/A * Community resources currently utilized None * Additional services required to return to the preadmission environment? Yes * Can the patient safely return to the preadmission environment? Yes * Has this patient been hospitalized within the prior 30 days at any hospital? No External Providers External Provider: OTHER-OTHER Next Contact Date: Service Request Date: Service Type: Resolution: Reviewer: Comments: Coverage Notice Reviewer: [id number] Estela Washington Notice Issued Date-Time: 10/08/2020 13:40 Notice Type: IM Discharge Notice Notice Delivered To: Patient Relationship to Patient: Microsoft Dynamics Ax Developer Name: Delivery Method: HAND - Hand Delivered Ami Days: Prior Verbal Notification: Recipient Understood Notice: Yes Recipient Signature: Yes Med Rec Note Co-signed by Attending: Coverage Notice Comment: Reviewer: [id number] Estela Washington Notice Issued Date-Time: 10/08/2020 13:40 Notice Type: Patient Choice Letter Notice Delivered To: Patient Relationship to Patient: [employer] Dynamics Ax Developer Name: Delivery Method: HAND - Hand Delivered Ami Days: Prior Verbal Notification: Recipient Understood Notice: Yes Recipient Signature: Yes Med Rec Note Co-signed by Attending: Coverage Notice Comment: home health - care iv Last DP export: 10/08/20 1:53 pm Patient Name: KATHRYN GAUTHIER Page [phone] at 1405 All edits/amendments must be made on the electronic document DICTATION DATE: 10/09/20 1405 COFFEE GRINDER: DARRELL 10/09/20 1405 RPT#: [id number] DC DATE: STATUS: ADM IN [facility] [address] [place] [address] END OF REPORT
--- NOTE | 2020-10-09 15:39 | NUR ---
OT NOTE: (AM) PT COMPLETED ORAL HYGIENE WITH SETUP. PT COMPLETED UB HYGIENE WITH SETUP. (PM) PT REQUIRED MOD A FOR ADL MOB WITH RW. PT EXHIBITED DECREASED SAFETY AWARENESS. THANK YOU,JESSICA LONDONO
[2020-10-09 16:10] VITALS: BP 118/77
--- NOTE | 2020-10-09 16:54 | NUR ---
[employer] ON PHONE INQUIRING IF PT IS A PT IN THIS HOSPITAL. VERIFIED PT ADDRESS WITH [employer]. [employer] EXPRESSED GRATITUDE FOR INFORMATION.
--- NOTE | 2020-10-09 20:01 | NUR ---
Assumed care of pt after rounds/report. Pt is A&OX4 and verbalizes wants/needs clearly and without difficulty. Denies pain/discomfort. Utilizing urinal. Pt lying in bed watching TV.
[2020-10-09 21:08] VITALS: BP 132/82
[2020-10-10 01:26] VITALS: BP 153/73
[2020-10-10 05:36] LABS: BASOPHILS 0.2 % (0-2); EOSINOPHILS 0.6 % (0-7); HEMATOCRIT 33.6 % (42.0-54.0); HEMOGLOBIN 10.7 g/dL (13.5-17.5); IMMATURE GRANULOCYTES 0.5 % (0-5); LYMPHOCYTE ABS# 1.69 10x3/uL (1.32-3.57); LYMPHOCYTES 16.4 % (15-50); MCH 28.4 pg (26.0-34.0); MCHC 31.8 g/dL (31.0-37.0); MCV 89.1 fL (80.0-100.0); MEAN PLATELET VOLUME 9.9 fL (7.4-10.4); MONOCYTES 9.3 % (2-11); NEUTROPHIL ABS# 7.52 10x3/uL (1.78-5.38); PLATELET COUNT 501 10x3/uL (130-400); RBC 3.77 10x6/uL (4.20-6.10); RDW 13.3 % (11.5-14.5); WBC 10.3 10x3/uL (4.8-10.8)
[2020-10-10 06:23] LABS: ALBUMIN 1.8 g/dL (3.4-5.0); ALKALINE PHOSPHATASE 82 U/L (30-120); ALT (SGPT) 24 U/L (10-68); BILIRUBIN - TOTAL 0.29 mg/dL (0.2-1.3); CALC OSMOLALITY 272 mosm/kg (275-300); CARBON DIOXIDE 25.1 mmol/L (21.0-32.0); CHLORIDE - SERUM 101 mmol/L (98-107); CREATININE - SERUM 0.9 mg/dL (0.6-1.3); GLUCOSE 96 mg/dL (74-106); POTASSIUM - SERUM 4.2 mmol/L (3.5-5.1); PROTEIN - SERUM 6.8 g/dL (6.4-8.2); SODIUM 136 mmol/L (136-145); eGFR NON AFRICAN AMERICAN 88 mL/min (90-120)
[2020-10-10 06:24] LABS: UREA NITROGEN 14 mg/dL (7-18)
[2020-10-10 06:26] VITALS: BP 148/81
[2020-10-10 08:26] VITALS: BP 125/73
--- NOTE | 2020-10-10 09:00 | NUR ---
REQUIRES ASSSIT WITH SET UP WITH MEALS. DRESSINGS CHANGED TO BLE WIT TYLENOL GIVEN FOR PAIN 01/14 AND EFFECTIVE 10/14. UP AMBULATING WITH THERAPY 250FT. WITH R/WALKER. FALL PRECAUTIONS IN PLACE AND ENCOURAGED TO USE CALL LIGHT FOR ASSIST.
[2020-10-10 13:25] VITALS: BP 134/78
--- NOTE | 2020-10-10 14:23 | NUR ---
250FT GT WITH WALKER HAD 3 LOB AND A BIT JERKY WHILE WALKING USED GT BELT
[2020-10-10 17:11] VITALS: BP 154/81
[2020-10-10 20:03] VITALS: BP 126/71
--- NOTE | 2020-10-10 20:03 | NUR ---
Assumed care of pt after report/rounds. Pt remains A&OX4 and verbalizes wants/needs clearly, appropriately and without hesitation. Denies pain/discomfort. IV infuing per order through patent IV. Utilizing urinal and call light appropriately. Lying in bed resting at this time.
[2020-10-11 00:11] VITALS: BP 143/68
[2020-10-11 05:00] VITALS: BP 106/73
[2020-10-11 06:27] LABS: BASOPHILS 0.3 % (0-2); HEMATOCRIT 33.3 % (42.0-54.0); HEMOGLOBIN 10.7 g/dL (13.5-17.5); IMMATURE GRANULOCYTES 0.3 % (0-5); LYMPHOCYTE ABS# 1.73 10x3/uL (1.32-3.57); LYMPHOCYTES 19.1 % (15-50); MCH 28.6 pg (26.0-34.0); MCHC 32.1 g/dL (31.0-37.0); MEAN PLATELET VOLUME 9.8 fL (7.4-10.4); MONOCYTES 6.9 % (2-11); NEUTROPHIL ABS# 6.55 10x3/uL (1.78-5.38); NEUTROPHILS 72.4 % (40-80); PLATELET COUNT 499 10x3/uL (130-400); RBC 3.74 10x6/uL (4.20-6.10); RDW 13.1 % (11.5-14.5); WBC 9.1 10x3/uL (4.8-10.8)
[2020-10-11 07:27] LABS: ALBUMIN 1.9 g/dL (3.4-5.0); ALKALINE PHOSPHATASE 68 U/L (30-120); ALT (SGPT) 24 U/L (10-68); BILIRUBIN - TOTAL 0.29 mg/dL (0.2-1.3); CALC OSMOLALITY 268 mosm/kg (275-300); CHLORIDE - SERUM 100 mmol/L (98-107); CREATININE - SERUM 0.9 mg/dL (0.6-1.3); GLUCOSE 118 mg/dL (74-106); PROTEIN - SERUM 7.1 g/dL (6.4-8.2); SODIUM 134 mmol/L (136-145); UREA NITROGEN 12 mg/dL (7-18); eGFR NON AFRICAN AMERICAN 88 mL/min (90-120)
--- NOTE | 2020-10-11 09:00 | NUR ---
DRESSINGS DRY AND INTACT TO BLE AND AMBLUATING WITH THERAPY 250FT WITH R/WALKER. SITTING UP IN CHAIR AT THIS TIME WITH FALL PRECAUTIONS IN PLACE. ENCOURAGED TO USE CALL LIGHT FOR ASSSIT. IVF INFUSING TO LEFT F/A AT PRESCRIBED RATE. DENEIS ANY PAIN OR DISCOMFORT AT THIS TIME.
[2020-10-11 09:08] VITALS: BP 121/70
[2020-10-11 12:42] VITALS: BP 130/67
[2020-10-11 16:49] VITALS: BP 139/70
[2020-10-11 19:51] VITALS: BP 148/66
--- NOTE | 2020-10-11 20:23 | NUR ---
Assumed care of pt after report/rounds. Pt remains A&O X4 and verbalizes wants/needs clearly, without hesitation or difficulty. Denies pain/discomfort. Did reiterate teachings on meds and skin care. Pt verbalized understanding. Using urianl in bed and utilizing call light appropriately to request assist.
[2020-10-12 00:04] VITALS: BP 157/71
[2020-10-12 06:47] LABS: BASOPHILS 0.4 % (0-2); EOSINOPHILS 0.9 % (0-7); HEMATOCRIT 35.4 % (42.0-54.0); HEMOGLOBIN 11.2 g/dL (13.5-17.5); IMMATURE GRANULOCYTES 0.3 % (0-5); LYMPHOCYTE ABS# 1.69 10x3/uL (1.32-3.57); LYMPHOCYTES 25.1 % (15-50); MCH 28.2 pg (26.0-34.0); MCHC 31.6 g/dL (31.0-37.0); MCV 89.2 fL (80.0-100.0); MONOCYTES 9.7 % (2-11); NEUTROPHIL ABS# 4.28 10x3/uL (1.78-5.38); NEUTROPHILS 63.6 % (40-80); PLATELET COUNT 468 10x3/uL (130-400); RBC 3.97 10x6/uL (4.20-6.10); RDW 13.2 % (11.5-14.5)
[2020-10-12 06:50] LABS: ALBUMIN 2.1 g/dL (3.4-5.0); ALKALINE PHOSPHATASE 70 U/L (30-120); ALT (SGPT) 22 U/L (10-68); BILIRUBIN - TOTAL 0.32 mg/dL (0.2-1.3); CALC OSMOLALITY 273 mosm/kg (275-300); CALCIUM 9.2 mg/dL (8.5-10.1); CARBON DIOXIDE 27.4 mmol/L (21.0-32.0); CHLORIDE - SERUM 102 mmol/L (98-107); CREATININE - SERUM 0.7 mg/dL (0.6-1.3); GLUCOSE 92 mg/dL (74-106); POTASSIUM - SERUM 4.6 mmol/L (3.5-5.1); PROTEIN - SERUM 6.6 g/dL (6.4-8.2); SODIUM 137 mmol/L (136-145); UREA NITROGEN 12 mg/dL (7-18); eGFR NON AFRICAN AMERICAN > 90 mL/min (90-120)
[2020-10-12 06:53] LABS: WBC 6.7 10x3/uL (4.8-10.8)
--- NOTE | 2020-10-12 07:35 | NUR ---
RECIEVED BEDSIDE REPORT. PATIENT IN BED SLEEPING. AROUSES TO VOICE, DENIES NEEDS AT THIS TIME. BED LOW POSITION, CALL LIGHT IN REACH. FREE FROM SIGNS OF DISTRESS. WILL CONTINUE TO MONITOR.
[2020-10-12 09:04] VITALS: BP 143/79
--- NOTE | 2020-10-12 10:33 | NUR ---
PATIENT WALKED 250 FEET WITH MIN ASST WITH WALKER.
[2020-10-12 12:21] VITALS: BP 126/62
[2020-10-12] MEDS ORDERED: PLAVIX75 MG PO (13:38)
--- NOTE | 2020-10-12 13:40 | NUR ---
IN BED RESTING. ATE 80% OF LUNCH. DENIES NEEDS AT THIS TIME. BED LOW POSITION, CALL LIGHT IN REACH. WILL CONTINUE TO MONITOR.
[2020-10-12] MEDS ORDERED: DOXYCYCLINE HY100 M2 PO (13:42)
--- NOTE | 2020-10-12 15:03 | MORECARE ---
CASE MANAGEMENT DISCHARGE SUMMARY PATIENT: KATHRYN GAUTHIER UNIT: [id number] ADM DATE: 09/30/20 AGE: 75 : 47 SEX: M ROOM/BED: D.2205 AUTHOR: PORTIA,DOC PHYSICIAN: REFERRING PHYSICIAN: JOHNNIE MOLINA MD DATE OF SERVICE: 10/12/20 Discharge Plan Patient Name: KATHRYN GAUTHIER Facility: [facility]:[place] : 1945 Planned Disposition: Home with Home Health Anticipated Discharge Date: Discharge Date: Expected LOS: Initial Reviewer: [id number] Initial Review Date: 09/30/2020 Generated: 10/12/20 4:02 pm Comments DCP- Discharge Planning Updated by [id number]: Gisella Washington on 10/12/20 1:[address] PATIENT WILL BE DISCHARING HOME TODAY WITH CARE IV HH IMM SERVED AND EXPLAINED. DCP- Discharge Planning Updated by [id number]: Gisella Washington on 10/09/20 1:[address] WALKER ORDER FAXED TO [facility] HE WILL DELIVER TO THE ROOM DCP- Discharge Planning Updated by [email or web address]: Gisella Washington on 10/08/20 1:[address] Patient Name: KATHRYN GAUTHIER Admission Status: ER Accout number: [id number] Admission Date: 09-30-2020 : 1945 Admission Diagnosis:SEPSIS, UNSPECIFIED ORGANISM Attending: JOHNNIE MOLINA Current LOS: 8 Anticipated DC Date: Planned Disposition: Home with Home Health Primary Insurance: MEDICARE A & B Discharge Planning Comments: CM met with patient to complete initial dc planning assessment. CM educated patient on the CM role and verbal consent given by patient to complete assessment. Patient lives at home by himself where he states he is independent. He is very hard to understand, but says he is safe to discharge home. He states he has running water and electricity at home. He got that fixed. At discharge patient plans to return home and feels this is a safe discharge. CM discussed availability of home health, rehab services, and medical equipment. He would like to have home health. SEBASTIAN with Care IV, IMM served and explained. He will need a walker when he is discharged. He did not want to go to rehab. He stated that he has money to get his medications & he uses [facility]. Patient denied known discharge needs at this time. CM will continue to follow and will assist as needed with dc plans/needs Mining Analyst: Gisella Washington DCPIA - Discharge Planning Initial Assessment Updated by [email or web address]: Gisella Washington on 10/08/20 2:28 pm * Is the patient Alert and Oriented? Yes * PCP MERARY? TRISHA? * Pharmacy [facility] * Preadmission Environment Home Alone * ADLs Independent * Equipment None * Verbal permission to speak to the caregivers and representatives has been obtained from the patient. N/A * Community resources currently utilized None * Additional services required to return to the preadmission environment? Yes * Can the patient safely return to the preadmission environment? Yes * Has this patient been hospitalized within the prior 30 days at any hospital? No Coverage Notice Reviewer: [email or web address] Estela Washington Notice Issued Date-Time: 10/08/2020 13:40 Notice Type: IM Discharge Notice Notice Delivered To: Patient Relationship to Patient: Compliance Associate Name: Delivery Method: HAND - Hand Delivered Ami Days: Prior Verbal Notification: Recipient Understood Notice: Yes Recipient Signature: Yes Med Rec Note Co-signed by Attending: Coverage Notice Comment: Reviewer: [id number] Washington Notice Issued Date-Time: 10/08/2020 13:40 Notice Type: Patient Choice Letter Notice Delivered To: Patient Relationship to Patient: Compliance Associate Name: Delivery Method: HAND - Hand Delivered Ami Days: Prior Verbal Notification: Recipient Understood Notice: Yes Recipient Signature: Yes Med Rec Note Co-signed by Attending: Coverage Notice Comment: home health - care iv Reviewer: [id number] Estela Washington Notice Issued Date-Time: 10/12/2020 14:50 Notice Type: IM Discharge Notice Notice Delivered To: Patient Relationship to Patient: Compliance Associate Name: Delivery Method: HAND - Hand Delivered Ami Days: Prior Verbal Notification: Recipient Understood Notice: Yes Recipient Signature: Yes Med Rec Note Co-signed by Attending: Coverage Notice Comment: IMM SERVED AND SIGNED Last DP export: 10/09/20 1:05 pm Patient Name: KATHRYN GAUTHIER Page [id number] at 1503 All edits/amendments must be made on the electronic document DICTATION DATE: 10/12/201501 LUMBER SORTER: DARRELL 10/12/201501 RPT#: [id number] DC DATE: STATUS: ADM IN [facility] [address] [place] [address] END OF REPORT
--- NOTE | 2020-10-12 15:46 | NUR ---
OT NOTE: PT COMPLETED BED MOB WITH SBA. PT COMPLETED SIT TO STAND WITH MIN A. PT COMPLETED ADL MOB WITH MIN A. PT COMPLETED TOILETING WITH CGA-MIN A FOR HYGIENE. 825-4 THANK YOU, JESSICA LONDONO
[2020-10-12 16:13] VITALS: BP 102/66
--- NOTE | 2020-10-12 17:00 | NUR ---
DISCHARGE PAPERS COMPLETE. IV REMOVED, CATH TIP INTACT. SPOKE WITH LIS IN CASE MANAGEMENT WELL SUZANNE MORALES IN CASE MANAGEMENT AND SINCE THE [employer] IS NOT RUNNING, AND THE PATIENT CANNOT GET ON TO A BUS DUE TO CONDITION, AND THERE IS NO OTHER RIDE AVAILABLE, THE PATIENT IS STAYING ONE MORE NIGHT. WILL TRY OPTIONS AGAIN IN THE MORNING.
--- NOTE | 2020-10-12 17:03 | MORECARE ---
CASE MANAGEMENT DISCHARGE SUMMARY PATIENT: KATHRYN GAUTHIER UNIT: [id number] ADM DATE: 09/30/20 AGE: 75 : 47 SEX: M ROOM/BED: D.2205 AUTHOR: PORTIA,DOC PHYSICIAN: REFERRING PHYSICIAN: JOHNNIE MOLINA MD DATE OF SERVICE: 10/12/20 Discharge Plan Patient Name: KATHRYN GAUTHIER Facility: [facility]:[place] : 1945 Planned Disposition: Home with Home Health Anticipated Discharge Date: Discharge Date: Expected LOS: Initial Reviewer: [id number] Initial Review Date: 09/30/2020 Generated: 10/12/20 6:02 pm Comments DCP- Discharge Planning Updated by [id number]: Emily Ratliff on 10/12/20 3:[address] Patient Name: KATHRYN GAUTHIER Admission Status: ER Accout number: [id number] Admission Date: 09-30-2020 : 1945 Admission Diagnosis:SEPSIS, UNSPECIFIED ORGANISM Attending: JOHNNIE MOLINA Current LOS: 12 Anticipated DC Date: Planned Disposition: Home with Home Health Primary Insurance: MEDICARE A & B Discharge Planning Comments: HOME HEALTH ORDER FAXED TO [facility] Hay Chopper: Emily Ratliff DCP- Discharge Planning Updated by [id number]: Gisella Washington on 10/12/20 1:[address] PATIENT WILL BE DISCHARING HOME TODAY WITH [facility] HH IMM SERVED AND EXPLAINED. DCP- Discharge Planning Updated by [id number]: Gisella Washington on 10/09/20 1:[address] WALKER ORDER FAXED TO [facility] HE WILL DELIVER TO THE ROOM DCP- Discharge Planning Updated by [id number]: Gisella Washington on 10/08/20 1:[address] Patient Name: KATHRYN GAUTHIER Admission Status: ER Accout number: [id number] Admission Date: 09-30-2020 : 1945 Admission Diagnosis:SEPSIS, UNSPECIFIED ORGANISM Attending: JOHNNIE MOLINA Current LOS: 8 Anticipated DC Date: Planned Disposition: Home with Home Health Primary Insurance: MEDICARE A & B Discharge Planning Comments: CM met with patient to complete initial dc planning assessment. CM educated patient on the CM role and verbal consent given by patient to complete assessment. Patient lives at home by himself where he states he is independent. He is very hard to understand, but says he is safe to discharge home. He states he has running water and electricity at home. He got that fixed. At discharge patient plans to return home and feels this is a safe discharge. CM discussed availability of home health, rehab services, and medical equipment. He would like to have home health. SEBASTIAN with [facility], IMM served and explained. He will need a walker when he is discharged. He did not want to go to rehab. He stated that he has money to get his medications & [facility]. Patient denied known discharge needs at this time. CM will continue to follow and will assist as needed with dc plans/needs Hay Chopper: Gisella Washington DCPIA - Discharge Planning Initial Assessment Updated by [id number]: Gisella Washington on 10/08/20 2:28 pm * Is the patient Alert and Oriented? Yes * PCP MERARY? TRISHA? * Pharmacy [facility] * Preadmission Environment Home Alone * ADLs Independent * Equipment None * Verbal permission to speak to the caregivers and representatives has been obtained from the patient. N/A * Community resources currently utilized None * Additional services required to return to the preadmission environment? Yes * Can the patient safely return to the preadmission environment? Yes * Has this patient been hospitalized within the prior 30 days at any hospital? No Coverage Notice Reviewer: [id number] Estela Washington Notice Issued Date-Time: 10/08/2020 13:40 Notice Type: IM Discharge Notice Notice Delivered To: Patient Relationship to Patient: Barrel Assembly Inspector Name: Delivery Method: HAND - Hand Delivered Ami Days: Prior Verbal Notification: Recipient Understood Notice: Yes Recipient Signature: Yes Med Rec Note Co-signed by Attending: Coverage Notice Comment: Reviewer: [id number] Estela Washington Notice Issued Date-Time: 10/08/2020 13:40 Notice Type: Patient Choice Letter Notice Delivered To: Patient Relationship to Patient: Barrel Assembly Inspector Name: Delivery Method: HAND - Hand Delivered Ami Days: Prior Verbal Notification: Recipient Understood Notice: Yes Recipient Signature: Yes Med Rec Note Co-signed by Attending: Coverage Notice Comment: home health - care iv Reviewer: [id number] Estela Washington Notice Issued Date-Time: 10/12/2020 14:50 Notice Type: IM Discharge Notice Notice Delivered To: Patient Relationship to Patient: Barrel Assembly Inspector Name: Delivery Method: HAND - Hand Delivered Ami Days: Prior Verbal Notification: Recipient Understood Notice: Yes Recipient Signature: Yes Med Rec Note Co-signed by Attending: Coverage Notice Comment: IMM SERVED AND SIGNED Last DP export: 10/12/20 2:03 pm Patient Name: KATHRYN GAUTHIER Page [phone] at 1703 All edits/amendments must be made on the electronic document DICTATION DATE: 10/12/201702 ROUGH PATCHER: DARRELL 10/12/201702 RPT#: [id number] DC DATE: STATUS: ADM IN [facility] [address] [place] [address] END OF REPORT
[2020-10-13 04:44] VITALS: BP 165/73
[2020-10-13 04:55] LABS: BASOPHILS 0.5 % (0-2); HEMATOCRIT 33.1 % (42.0-54.0); HEMOGLOBIN 10.7 g/dL (13.5-17.5); IMMATURE GRANULOCYTES 0.3 % (0-5); LYMPHOCYTE ABS# 1.98 10x3/uL (1.32-3.57); LYMPHOCYTES 25.7 % (15-50); MCH 28.5 pg (26.0-34.0); MCHC 32.3 g/dL (31.0-37.0); MCV 88.3 fL (80.0-100.0); MEAN PLATELET VOLUME 9.7 fL (7.4-10.4); NEUTROPHIL ABS# 4.73 10x3/uL (1.78-5.38); NEUTROPHILS 61.5 % (40-80); PLATELET COUNT 489 10x3/uL (130-400); RBC 3.75 10x6/uL (4.20-6.10); RDW 13.3 % (11.5-14.5); WBC 7.7 10x3/uL (4.8-10.8)
[2020-10-13 05:18] LABS: ALBUMIN 1.9 g/dL (3.4-5.0); ALKALINE PHOSPHATASE 66 U/L (30-120); ALT (SGPT) 20 U/L (10-68); BILIRUBIN - TOTAL 0.22 mg/dL (0.2-1.3); CALC OSMOLALITY 271 mosm/kg (275-300); CALCIUM 8.9 mg/dL (8.5-10.1); CHLORIDE - SERUM 101 mmol/L (98-107); CREATININE - SERUM 0.8 mg/dL (0.6-1.3); GLUCOSE 91 mg/dL (74-106); POTASSIUM - SERUM 3.7 mmol/L (3.5-5.1); PROTEIN - SERUM 7.1 g/dL (6.4-8.2); SODIUM 136 mmol/L (136-145); UREA NITROGEN 12 mg/dL (7-18); eGFR NON AFRICAN AMERICAN > 90 mL/min (90-120)
--- NOTE | 2020-10-13 06:41 | NUR ---
Pt rested on and off throught the night. Up and dopwn changing clothes and going through belonging. Pt verbalizes being excited to go home.
[2020-10-13 09:07] VITALS: BP 150/66
--- NOTE | 2020-10-13 10:34 | MORECARE ---
CASE MANAGEMENT DISCHARGE SUMMARY PATIENT: KATHRYN GAUTHIER UNIT: [id number] ADM DATE: 09/30/20 AGE: 75 : 47 SEX: M ROOM/BED: D.2205 AUTHOR: PORTIA,DOC PHYSICIAN: REFERRING PHYSICIAN: JOHNNIE MOLINA MD DATE OF SERVICE: 10/13/20 Discharge Plan Patient Name: KATHRYN GAUTHIER Facility: [facility]:[place] : 1945 Planned Disposition: Home with Home Health Anticipated Discharge Date: Discharge Date: Expected LOS: Initial Reviewer: [id number] Initial Review Date: 09/30/2020 Generated: 10/13/20 11:33 am Comments DCP- Discharge Planning Updated by [email or web address]: Gisella Washington on 10/13/20 9:[address] per the patient's nurse the daughter will be picking the patient up today to take him home DCP- Discharge Planning Updated by [id number]: Emily Ratliff on 10/12/20 3:[address] Patient Name: KATHRYN GAUTHIER Admission Status: ER Accout number: [id number] Admission Date: 09-30-2020 : 1945 Admission Diagnosis:SEPSIS, UNSPECIFIED ORGANISM Attending: JOHNNIE MOLINA Current LOS: 12 Anticipated DC Date: Planned Disposition: Home with Home Health Primary Insurance: MEDICARE A & B Discharge Planning Comments: HOME HEALTH ORDER FAXED TO [facility] . Milling Machine Operator Gear: Emily Ratliff DCP- Discharge Planning Updated by [email or web address]: Gisella Washington on 10/12/20 1:[address] PATIENT WILL BE DISCHARING HOME TODAY WITH [facility]ARE IV IMM SERVED AND EXPLAINED. DCP- Discharge Planning Updated by [id number]: Gisella Washington on 10/09/20 1:[address] WALKER ORDER FAXED TO [facility] HE WILL DELIVER TO THE ROOM DCP- Discharge Planning Updated by [id number]: Gisella Washington on 10/08/20 1:[address] Patient Name: KATHRYN GAUTHIER Admission Status: ER Accout number: [id number] Admission Date: 09-30-2020 : 1945 Admission Diagnosis:SEPSIS, UNSPECIFIED ORGANISM Attending: JOHNNIE MOLINA Current LOS: 8 Anticipated DC Date: Planned Disposition: Home with Home Health Primary Insurance: MEDICARE A & B Discharge Planning Comments: CM met with patient to complete initial dc planning assessment. CM educated patient on the CM role and verbal consent given by patient to complete assessment. Patient lives at home by himself where he states he is independent. He is very hard to understand, but says he is safe to discharge home. He states he has running water and electricity at home. He got that fixed. At discharge patient plans to return home and feels this is a safe discharge. CM discussed availability of home health, rehab services, and medical equipment. He would like to have home health. SEBASTIAN with [facility], IMM served and explained. He will need a walker when he is discharged. He did not want to go to rehab. He stated that he has money to get his medications & [facility]. Patient denied known discharge needs at this time. CM will continue to follow and will assist as needed with dc plans/needs Milling Machine Operator Gear: Gisella Washington DCPIA - Discharge Planning Initial Assessment Updated by [id number]: Gisella Washington on 10/08/20 2:28 pm * Is the patient Alert and Oriented? Yes * PCP MERARY? TRISHA? * Pharmacy [facility] * Preadmission Environment Home Alone * ADLs Independent * Equipment None * Verbal permission to speak to the caregivers and representatives has been obtained from the patient. N/A * Community resources currently utilized None * Additional services required to return to the preadmission environment? Yes * Can the patient safely return to the preadmission environment? Yes * Has this patient been hospitalized within the prior 30 days at any hospital? No Coverage Notice Reviewer: [id number] Estela Washington Notice Issued Date-Time: 10/08/2020 13:40 Notice Type: IM Discharge Notice Notice Delivered To: Patient Relationship to Patient: Clinical Psychiatrist Name: Delivery Method: HAND - Hand Delivered Ami Days: Prior Verbal Notification: Recipient Understood Notice: Yes Recipient Signature: Yes Med Rec Note Co-signed by Attending: Coverage Notice Comment: Reviewer: [id number] Estela Washington Notice Issued Date-Time: 10/08/2020 13:40 Notice Type: Patient Choice Letter Notice Delivered To: Patient Relationship to Patient: Clinical Psychiatrist Name: Delivery Method: HAND - Hand Delivered Ami Days: Prior Verbal Notification: Recipient Understood Notice: Yes Recipient Signature: Yes Med Rec Note Co-signed by Attending: Coverage Notice Comment: home health - care iv Reviewer: [id number] - Gisella Washington Notice Issued Date-Time: 10/12/2020 14:50 Notice Type: IM Discharge Notice Notice Delivered To: Patient Relationship to Patient: Clinical Psychiatrist Name: Delivery Method: HAND - Hand Delivered Ami Days: Prior Verbal Notification: Recipient Understood Notice: Yes Recipient Signature: Yes Med Rec Note Co-signed by Attending: Coverage Notice Comment: IMM SERVED AND SIGNED Last DP export: 10/12/20 4:03 pm Patient Name: KATHRYN GAUTHIER Page [phone] at 1034 All edits/amendments must be made on the electronic document DICTATION DATE: 10/13/20 1033 FIELD MECHANIC/SITE LEAD: DARRELL 10/13/20 1033 RPT#: [id number] DC DATE: STATUS: ADM IN [facility] [address] [place] [address] END OF REPORT
--- NOTE | 2020-10-13 16:02 | NUR ---
OT NOTE: PT COMPLETED SUPINE TO SIT WITH SPV. PT COMPLETED SITTING AT EOB WITH SPV. PT COMPLETED ORAL CARE WITH SETUP. PT COMPLETED FACE HYGIENE WITH SETUP. 4-182 THANK YOU,JESSICA LONDONO
--- NOTE | 2020-10-14 09:17 | MORECARE ---
CASE MANAGEMENT DISCHARGE SUMMARY PATIENT: KATHRYN GAUTHIER UNIT: [id number] ADM DATE: 09/30/20 AGE: 75 : 47 SEX: M ROOM/BED: D.2205 AUTHOR: PORTIA,DOC PHYSICIAN: REFERRING PHYSICIAN: JOHNNIE MOLINA MD DATE OF SERVICE: 10/14/20 Discharge Plan Patient Name: KATHRYN GAUTHIER Facility: [facility]:[place] : 1945 Planned Disposition: Home with Home Health Anticipated Discharge Date: Discharge Date: 10/13/2020 Expected LOS: Initial Reviewer: [id number] Initial Review Date: 09/30/2020 Generated: 10/14/20 10:16 am Comments DCP- Discharge Planning Updated by [id number]: Gisella Washington on 10/13/20 9:[address] per the patient's nurse the daughter will be picking the patient up today to take him home DCP- Discharge Planning Updated by [id number]: Emily Ratliff on 10/12/20 3:[address] Patient Name: KATHRYN GAUTHIER Admission Status: ER Accout number: [id number] Admission Date: 09-30-2020 : 1945 Admission Diagnosis:SEPSIS, UNSPECIFIED ORGANISM Attending: JOHNNIE MOLINA Current LOS: 12 Anticipated DC Date: Planned Disposition: Home with Home Health Primary Insurance: MEDICARE A & B Discharge Planning Comments: HOME HEALTH ORDER FAXED TO [facility] . Cloth Weigher: Emily Ratliff DCP- Discharge Planning Updated by [email or web address]: Gisella Washington on 10/12/20 1:[address] PATIENT WILL BE DISCHARING HOME TODAY WITH [facility] IV HH IMM SERVED AND EXPLAINED. DCP- Discharge Planning Updated by [email or web address]: Gisella Washington on 10/09/20 1:[address] WALKER ORDER FAXED TO [facility] HE WILL DELIVER TO THE ROOM DCP- Discharge Planning Updated by [id number]: Gisella Washington on 10/08/20 1:[address] Patient Name: KATHRYN GAUTHIER Admission Status: ER Accout number: [id number] Admission Date: 09-30-2020 : 1945 Admission Diagnosis:SEPSIS, UNSPECIFIED ORGANISM Attending: JOHNNIE MOLINA Current LOS: 8 Anticipated DC Date: Planned Disposition: Home with Home Health Primary Insurance: MEDICARE A & B Discharge Planning Comments: CM met with patient to complete initial dc planning assessment. CM educated patient on the CM role and verbal consent given by patient to complete assessment. Patient lives at home by himself where he states he is independent. He is very hard to understand, but says he is safe to discharge home. He states he has running water and electricity at home. He got that fixed. At discharge patient plans to return home and feels this is a safe discharge. CM discussed availability of home health, rehab services, and medical equipment. He would like to have home health. SEBASTIAN with Care IV, IMM served and explained. He will need a walker when he is discharged. He did not want to go to rehab. He stated that he has money to get his medications & [facility] Patient denied known discharge needs at this time. CM will continue to follow and will assist as needed with dc plans/needs Cloth Weigher: Gisella Washington DCPIA - Discharge Planning Initial Assessment Updated by [email or web address]: Gisella Washington on 10/08/20 2:28 pm * Is the patient Alert and Oriented? Yes * PCP MERARY? TRISHA? * Pharmacy [facility] * Preadmission Environment Home Alone * ADLs Independent * Equipment None * Verbal permission to speak to the caregivers and representatives has been obtained from the patient. N/A * Community resources currently utilized None * Additional services required to return to the preadmission environment? Yes * Can the patient safely return to the preadmission environment? Yes * Has this patient been hospitalized within the prior 30 days at any hospital? No Coverage Notice Reviewer: [id number] Estela Washington Notice Issued Date-Time: 10/08/2020 13:40 Notice Type: IM Discharge Notice Notice Delivered To: Patient Relationship to Patient: Train Brakeman Name: Delivery Method: HAND - Hand Delivered Ami Days: Prior Verbal Notification: Recipient Understood Notice: Yes Recipient Signature: Yes Med Rec Note Co-signed by Attending: Coverage Notice Comment: Reviewer: [id number] Estela Washington Notice Issued Date-Time: 10/08/2020 13:40 Notice Type: Patient Choice Letter Notice Delivered To: Patient Relationship to Patient: Train Brakeman Name: Delivery Method: HAND - Hand Delivered Ami Days: Prior Verbal Notification: Recipient Understood Notice: Yes Recipient Signature: Yes Med Rec Note Co-signed by Attending: Coverage Notice Comment: home health - care iv Reviewer: [id number] Estela Washington Notice Issued Date-Time: 10/12/2020 14:50 Notice Type: IM Discharge Notice Notice Delivered To: Patient Relationship to Patient: Train Brakeman Name: Delivery Method: HAND - Hand Delivered Ami Days: Prior Verbal Notification: Recipient Understood Notice: Yes Recipient Signature: Yes Med Rec Note Co-signed by Attending: Coverage Notice Comment: IMM SERVED AND SIGNED Last DP export: 10/13/20 9:34 am Patient Name: KATHRYN GAUTHIER Page [phone] at 0917 All edits/amendments must be made on the electronic document DICTATION DATE: 10/14/20915 SODA FOUNTAIN CLERK: DARRELL 10/14/20915 RPT#: [id number] DC DATE:10/13/20 STATUS: DIS IN [facility] [address] [place] [address] END OF REPORT
--- NOTE | 2020-10-14 15:07 | MORECARE ---
CASE MANAGEMENT DISCHARGE SUMMARY PATIENT: KATHRYN GAUTHIER UNIT: [id number] ADM DATE: 09/30/20 AGE: 75 : 49 SEX: M ROOM/BED: D.2205 AUTHOR: PORTIA,DOC PHYSICIAN: REFERRING PHYSICIAN: JOHNNIE MOLINA MD DATE OF SERVICE: 10/14/20 Discharge Plan Patient Name: KATHRYN GAUTHIER Facility: [facility]:[place] : 1945 Planned Disposition: Home with Home Health Anticipated Discharge Date: Discharge Date: 10/13/2020 Expected LOS: Initial Reviewer: [email or web address] Initial Review Date: 09/30/2020 Generated: 10/14/20 4:07 pm Comments DCP- Discharge Planning Updated by [email or web address]: Gisella Washington on 10/14/20 1:[address] [facility] CALLED AND STATED THAT THEY ARE TRYING TO GET AHOLD OF PATIENT AND DR MCCALL TO START CARE DCP- Discharge Planning Updated by [email or web address]: Gisella Washington on 10/13/20 9:[address] per the patient's nurse the daughter will be picking the patient up today to take him home DCP- Discharge Planning Updated by [email or web address]: Emily Ratliff on 10/12/20 3:[address] Patient Name: KATHRYN GAUTHIER Admission Status: ER Accout number: [id number] Admission Date: 09-30-2020 : 1945 Admission Diagnosis:SEPSIS, UNSPECIFIED ORGANISM Attending: JOHNNIE MOLINA Current LOS: 12 Anticipated DC Date: Planned Disposition: Home with Home Health Primary Insurance: MEDICARE A & B Discharge Planning Comments: HOME HEALTH ORDER FAXED TO [facility]. Director Treasurer: Emily Ratliff DCP- Discharge Planning Updated by [email or web address]: Gisella Washington on 10/12/20 1:[address] PATIENT WILL BE DISCHARING HOME TODAY WITH [facility] IMM SERVED AND EXPLAINED. DCP- Discharge Planning Updated by [email or web address]: Gisella Washington on 10/09/20 1:[address] WALKER ORDER FAXED TO [facility] HE WILL DELIVER TO THE ROOM DCP- Discharge Planning Updated by [email or web address]: Gisella Washington on 10/08/20 1:[address] Patient Name: KATHRYN GAUTHIER Admission Status: ER Accout number: [id number] Admission Date: 09-30-2020 : 1945 Admission Diagnosis:SEPSIS, UNSPECIFIED ORGANISM Attending: JOHNNIE MOLINA Current LOS: 8 Anticipated DC Date: Planned Disposition: Home with Home Health Primary Insurance: MEDICARE A & B Discharge Planning Comments: CM met with patient to complete initial dc planning assessment. CM educated patient on the CM role and verbal consent given by patient to complete assessment. Patient lives at home by himself where he states he is independent. He is very hard to understand, but says he is safe to discharge home. He states he has running water and electricity at home. He got that fixed. At discharge patient plans to return home and feels this is a safe discharge. CM discussed availability of home health, rehab services, and medical equipment. He would like to have home health. [facility]ST[facility] with [facility], IMM served and explained. He will need a walker when he is discharged. He did not want to go to rehab. He stated that he has money to get his medications & [facility]. Patient denied known discharge needs at this time. CM will continue to follow and will assist as needed with dc plans/needs Director Treasurer: Gisella Washington DCPIA - Discharge Planning Initial Assessment Updated by [email or web address]: Gisella Washington on 10/08/20 2:28 pm * Is the patient Alert and Oriented? Yes * PCP MER[facility]? TRISHA? * [facility] * Preadmission Environment Home Alone * ADLs Independent * Equipment None * Verbal permission to speak to the caregivers and representatives has been obtained from the patient. N/A * Community resources currently utilized None * Additional services required to return to the preadmission environment? Yes * Can the patient safely return to the preadmission environment? Yes * Has this patient been hospitalized within the prior 30 days at any hospital? No Coverage Notice Reviewer: [email or web address] - Gisella Washington Notice Issued Date-Time: 10/08/2020 13:40 Notice Type: IM Discharge Notice Notice Delivered To: Patient Relationship to Patient: Advisory Intern Name: Delivery Method: HAND - Hand Delivered Ami Days: Prior Verbal Notification: Recipient Understood Notice: Yes Recipient Signature: Yes Med Rec Note Co-signed by Attending: Coverage Notice Comment: Reviewer: [id number] Estela Washington Notice Issued Date-Time: 10/08/2020 13:40 Notice Type: Patient Choice Letter Notice Delivered To: Patient Relationship to Patient: Advisory Intern Name: Delivery Method: HAND - Hand Delivered Ami Days: Prior Verbal Notification: Recipient Understood Notice: Yes Recipient Signature: Yes Med Rec Note Co-signed by Attending: Coverage Notice Comment: home health - [facility] Reviewer: [email or web address] Estela Washington Notice Issued Date-Time: 10/12/2020 14:50 Notice Type: IM Discharge Notice Notice Delivered To: Patient Relationship to Patient: Advisory Intern Name: Delivery Method: HAND - Hand Delivered Ami Days: Prior Verbal Notification: Recipient Understood Notice: Yes Recipient Signature: Yes Med Rec Note Co-signed by Attending: Coverage Notice Comment: IMM SERVED AND SIGNED Last DP export: 10/14/20 8:17 a Patient Name: KATHRYN GAUTHIER Page [phone] at 1507 All edits/amendments must be made on the electronic document DICTATION DATE: 10/14/20 1507 REHEATER: DARRELL 10/14/20 1507 RPT#: [id number] DC DATE:10/13/20 STATUS: DIS IN [facility] [address] [place] [address] END OF REPORT
== END 2020-10-13 11:56 | disposition home health service (06) | DRG 871 ==
LOC: D.ER 06:43 → D.EDHOLD 09:39 → D.MS 09:39 → D.EDHOLD 10-01 08:43 → D.MS 10-01 20:19
PROVIDERS: Emergency Medicine; Family Medicine; ADMIT Family Medicine; ATTEND Family Medicine
DX: A41.9 Sepsis, unspecified organism (principal); E43 Unspecified severe protein-calorie malnutrition; T33.822A Superficial frostbite of left foot, initial encounter; T33.821A Superficial frostbite of right foot, initial encounter; N17.9 Acute kidney failure, unspecified; L03.116 Cellulitis of left lower limb; L03.115 Cellulitis of right lower limb; E87.1 Hypo-osmolality and hyponatremia; Z68.1 Body mass index [BMI] 19.9 or less, adult; I96 Gangrene, not elsewhere classified; X31.XXXA Exposure to excessive natural cold, initial encounter; R74.01 Elevation of levels of liver transaminase levels; Z68.20 Body mass index [BMI] 20.0-20.9, adult; I73.9 Peripheral vascular disease, unspecified; Z59.0 Homelessness

== ENCOUNTER 2020-12-04 09:46 | Emergency (ER) | payer MEDICARE ==
[~2020-12-04] VITALS: Ht 188 cm; Wt 0.5 kg
[~2020-12-04 09:46] MED LIST: DOXYCYCLINE HY100 M2 PO; PLAVIX75 MG PO
[2020-12-04 09:52] VITALS: BP 165/82; Ht 188 cm; Wt 0.5 kg
[2020-12-04 10:50] LABS: BASOPHILS 0.2 % (0-2); EOSINOPHILS 1.6 % (0-7); HEMATOCRIT 36.1 % (42.0-54.0); HEMOGLOBIN 11.8 g/dL (13.5-17.5); IMMATURE GRANULOCYTES 0.4 % (0-5); LYMPHOCYTE ABS# 1.74 10x3/uL (1.32-3.57); LYMPHOCYTES 30.8 % (15-50); MCH 26.8 pg (26.0-34.0); MCHC 32.7 g/dL (31.0-37.0); MCV 81.9 fL (80.0-100.0); MEAN PLATELET VOLUME 9.5 fL (7.4-10.4); MONOCYTES 14.2 % (2-11); NEUTROPHIL ABS# 2.99 10x3/uL (1.78-5.38); NEUTROPHILS 52.8 % (40-80); PLATELET COUNT 323 10x3/uL (130-400); RBC 4.41 10x6/uL (4.20-6.10); RDW 13.7 % (11.5-14.5); WBC 5.7 10x3/uL (4.8-10.8)
[2020-12-04 11:10] LABS: CALC OSMOLALITY 275 mosm/kg (275-300); CALCIUM 8.8 mg/dL (8.5-10.1); CARBON DIOXIDE 27.8 mmol/L (21.0-32.0); CHLORIDE - SERUM 101 mmol/L (98-107); CREATININE - SERUM 0.8 mg/dL (0.6-1.3); GLUCOSE 106 mg/dL (74-106); POTASSIUM - SERUM 3.6 mmol/L (3.5-5.1); SODIUM 138 mmol/L (136-145); UREA NITROGEN 12 mg/dL (7-18); eGFR NON AFRICAN AMERICAN > 90 mL/min (90-120)
[2020-12-04 11:16] LABS: ALBUMIN 2.6 g/dL (3.4-5.0); ALKALINE PHOSPHATASE 89 U/L (30-120); ALT (SGPT) 8 U/L (10-68); BILIRUBIN - TOTAL 0.19 mg/dL (0.2-1.3); C-REACTIVE PROTEIN 7.4 mg/dL (0.0-0.9); PROTEIN - SERUM 6.8 g/dL (6.4-8.2)
[2020-12-04 11:42] LABS: ERYTHROCYTE SEDIMENTATION RATE 98 mm/hr (0-20)
[2020-12-04] MEDS ORDERED: CEPHALEXIN500 M1 PO (11:43)
== END 2020-12-04 12:43 | disposition home or self-care (01) ==
LOC: D.ER 09:46
PROVIDERS: Student in an Organized Health Care Education/Training Program
DX: S81.802A Unspecified open wound, left lower leg, initial encounter (principal); S81.801A Unspecified open wound, right lower leg, initial encounter; X31.XXXA Exposure to excessive natural cold, initial encounter

== ENCOUNTER 2020-12-26 23:34 | Inpatient (IN) | payer MEDICARE ==
[~2020-12-26] VITALS: Ht 188 cm; Wt 68.2 kg
[~2020-12-26 23:34] MED LIST changes: +CEPHALEXIN500 M1 PO
[2020-12-27] VITALS: BP 141/78
[2020-12-27 00:27] LABS: BASOPHILS 0.6 % (0-2); EOSINOPHILS 1.6 % (0-7); HEMATOCRIT 28.9 % (42.0-54.0); HEMOGLOBIN 9.4 g/dL (13.5-17.5); LYMPHOCYTES 19.9 % (15-50); MCH 24.8 pg (26.0-34.0); MCHC 32.4 g/dL (31.0-37.0); MCV 76.5 fL (80.0-100.0); MEAN PLATELET VOLUME 7.1 fL (7.4-10.4); MONOCYTES 17.9 % (2-11); PLATELET COUNT 458 10x3/uL (130-400); RBC 3.78 10x6/uL (4.20-6.10); RDW 15.3 % (11.5-14.5); WBC 8.1 10x3/uL (4.8-10.8)
[2020-12-27 00:41] LABS: CALC OSMOLALITY 270 mosm/kg (275-300); CALCIUM 9.1 mg/dL (8.5-10.1); CARBON DIOXIDE 25.6 mmol/L (21.0-32.0); CHLORIDE - SERUM 99 mmol/L (98-107); GLUCOSE 120 mg/dL (74-106); POTASSIUM - SERUM 3.6 mmol/L (3.5-5.1); SODIUM 135 mmol/L (136-145); UREA NITROGEN 12 mg/dL (7-18); eGFR NON AFRICAN AMERICAN 78 mL/min (90-120)
[2020-12-27 01:01] LABS: ALBUMIN 2.1 g/dL (3.4-5.0); ALKALINE PHOSPHATASE 59 U/L (30-120); ALT (SGPT) 11 U/L (10-68); PROTEIN - SERUM 7.3 g/dL (6.4-8.2)
[2020-12-27 01:29] LABS: ERYTHROCYTE SEDIMENTATION RATE 135 mm/hr (0-20)
[2020-12-27 02:15] VITALS: BP 132/82; BMI 19.3
--- NOTE | 2020-12-27 02:19 | NUR ---
ARRIVED TO FLOOR VIA STRECHER FROM ER. ALERT.ORIENTED.RESP EVEN AND UNALBORED. NO DISTRESS NOTED. DRESSING TO BILATERAL FEET INTACT WITH BETADINE NOTED TO DRESSINGS. BILATERAL HAND WITH FINGERTIPS HARD AND RIDGED. IV TO RFA INTACT WITHOUT REDNESS OR EDEMA NOTED. ORIENTED TO ROOM. CL IN REACH
--- NOTE | 2020-12-27 02:25 | NUR ---
ADMISSION ASSESSMENT COMPLETE. PT WITH LARGE OPEN WOUNDS ON BILATERAL FEET, COVERED WITH GAUZE DRESSING APPLIED BY ER. ALL TOES ARE BLACK WITH ESCHAR. ALL FINTERTIPS HAVE ESCHAR / SCABS / SORES.
--- NOTE | 2020-12-27 05:17 | NUR ---
PT DAUGHTER # [id number] SON IN LAW [phone]
[2020-12-27 08:50] VITALS: BP 98/57
[2020-12-27 13:31] VITALS: BP 105/55
--- NOTE | 2020-12-27 14:01 | NUR ---
0700 BEDSIDE REPORT COMPLETE PT PLEASANT ASSSSMENT COMPLETE VOICES NO COMPLAINTS
--- NOTE | 2020-12-27 14:02 | NUR ---
1030 ASSIST X 2 TO BSC SOFT BM NOTED DRESSINGS TO JENNIFER FEET INTACT WITH IODINE NOTED TO GAUZE FINGERS ON BOTH HANDS ESCHAR NOTED
[2020-12-27 17:08] VITALS: BP 105/61
[2020-12-27 19:42] LABS: APTT 39.2 SECONDS (22.8-39.4); INR 1.59 (0.85-1.17); PROTIME 17.5 SECONDS (11.6-15.0)
[2020-12-27 20:00] VITALS: BP 109/57
[2020-12-27 20:03] LABS: CKMB 0.1 U/L (0.0-3.6); CREATINE KINASE 35 UL (21-232); MAGNESIUM - SERUM 1.7 mg/dL (1.8-2.4)
[2020-12-27 20:10] LABS: TROPONIN-I < 0.017 ng/mL (0.000-0.060)
[2020-12-27 20:22] LABS: % SATURATION 10 % (15-55); IRON 16 ug/dl (35-150); TOTAL IRON BIND CAPACITY 154 ug/dl (260-445); UNSAT IRON BIND CAPACITY 138 ug/dl (150-375)
[2020-12-28] VITALS: BP 106/59
[2020-12-28 04:00] VITALS: BP 110/50
[2020-12-28 07:52] LABS: ALBUMIN 1.7 g/dL (3.4-5.0); ALKALINE PHOSPHATASE 50 U/L (30-120); ALT (SGPT) 10 U/L (10-68); BILIRUBIN - TOTAL 0.32 mg/dL (0.2-1.3); CALC OSMOLALITY 265 mosm/kg (275-300); CALCIUM 8.5 mg/dL (8.5-10.1); CARBON DIOXIDE 24.7 mmol/L (21.0-32.0); CHLORIDE - SERUM 102 mmol/L (98-107); CREATININE - SERUM 0.9 mg/dL (0.6-1.3); GLUCOSE 103 mg/dL (74-106); POTASSIUM - SERUM 3.5 mmol/L (3.5-5.1); PROTEIN - SERUM 6.2 g/dL (6.4-8.2); SODIUM 134 mmol/L (136-145); UREA NITROGEN 6 mg/dL (7-18); eGFR NON AFRICAN AMERICAN 88 mL/min (90-120)
[2020-12-28 08:55] LABS: BASOPHILS 0.5 % (0-2); EOSINOPHILS 4.7 % (0-7); HEMATOCRIT 23.2 % (42.0-54.0); HEMOGLOBIN 7.6 g/dL (13.5-17.5); LYMPHOCYTES 21.4 % (15-50); MCH 25.3 pg (26.0-34.0); MCHC 32.7 g/dL (31.0-37.0); MCV 77.4 fL (80.0-100.0); MEAN PLATELET VOLUME 7.3 fL (7.4-10.4); MONOCYTES 15.3 % (2-11); NEUTROPHILS 58.1 % (40-80); PLATELET COUNT 368 10x3/uL (130-400); RBC 2.99 10x6/uL (4.20-6.10); RDW 15.3 % (11.5-14.5); WBC 6.6 10x3/uL (4.8-10.8)
[2020-12-28 08:56] LABS: BILIRUBIN NEGATIVE (NEGATIVE); KETONE NEGATIVE (NEGATIVE); NITRITE NEGATIVE (NEGATIVE)
[2020-12-28 10:49] VITALS: BP 111/66
[2020-12-28 12:28] VITALS: BP 110/59
[2020-12-28 13:22] VITALS: Ht 188 cm; Wt 68.2 kg
[2020-12-28 18:16] VITALS: BP 128/73
[2020-12-28 19:15] LABS: ERYTHROCYTE SEDIMENTATION RATE 105 mm/hr (0-20)
[2020-12-28 20:00] VITALS: BP 131/73
--- NOTE | 2020-12-28 20:00 | NUR ---
PT SITTING UP IN BED WITHOUT DISTRESS, AOX4. INFUSING PRBC AT THIS TIME. TOLERATING WELL. DR MCCALL SEEING PT AT THIS TIME. ORDERED DAILY DRESSING CHANGES TO BILAT FEET STARTING IN AM. DR RAMOS CAME TO SEE PT. STATES TO START PT BACK ON REGULAR DIET THAT HE WILL NOT BE DOING ANY SURGERY ON HIM TONIGHT OR TOMORROW AND WOULD SPEAK TO PT DAUGHTER LATER THIS WEEK. PT GIVEN SANDWICH TRAY AT THIS TIME. DENIES OTHER NEEDS. CL IN REACH
[2020-12-29] VITALS: BP 144/86
[2020-12-29 04:00] VITALS: BP 117/65
[2020-12-29 05:59] LABS: BASOPHILS 0.4 % (0-2); EOSINOPHILS 4.2 % (0-7); HEMATOCRIT 25.5 % (42.0-54.0); HEMOGLOBIN 8.4 g/dL (13.5-17.5); LYMPHOCYTES 14.4 % (15-50); MCH 24.9 pg (26.0-34.0); MCHC 32.9 g/dL (31.0-37.0); MCV 75.6 fL (80.0-100.0); MEAN PLATELET VOLUME 7.1 fL (7.4-10.4); MONOCYTES 12.7 % (2-11); NEUTROPHILS 68.3 % (40-80); PLATELET COUNT 391 10x3/uL (130-400); RBC 3.37 10x6/uL (4.20-6.10); RDW 15.3 % (11.5-14.5); WBC 7.9 10x3/uL (4.8-10.8)
[2020-12-29 06:27] LABS: ALBUMIN 1.7 g/dL (3.4-5.0); ALKALINE PHOSPHATASE 50 U/L (30-120); ALT (SGPT) 8 U/L (10-68); BILIRUBIN - TOTAL 0.29 mg/dL (0.2-1.3); CALC OSMOLALITY 272 mosm/kg (275-300); CALCIUM 8.3 mg/dL (8.5-10.1); CARBON DIOXIDE 26.7 mmol/L (21.0-32.0); CHLORIDE - SERUM 102 mmol/L (98-107); CREATININE - SERUM 0.7 mg/dL (0.6-1.3); GLUCOSE 112 mg/dL (74-106); MAGNESIUM - SERUM 1.8 mg/dL (1.8-2.4); POTASSIUM - SERUM 3.3 mmol/L (3.5-5.1); PROTEIN - SERUM 6.1 g/dL (6.4-8.2); SODIUM 137 mmol/L (136-145); UREA NITROGEN 6 mg/dL (7-18); eGFR NON AFRICAN AMERICAN > 90 mL/min (90-120)
[2020-12-29 09:12] VITALS: BP 119/65
[2020-12-29 11:52] VITALS: BP 107/69
[2020-12-29 17:34] VITALS: BP 125/66
--- NOTE | 2020-12-29 19:30 | NUR ---
PT SITTING UP IN BED WITHOUT DISTRESS, AOX4. DRESSINGS [facility]. DRESSINGS CDI. PT DENIES PAIN AT THIS TIME. DENIES NEEDS. CL IN REACH, BED ALARM ON.
[2020-12-29 20:00] VITALS: BP 124/67
[2020-12-30] VITALS: BP 145/84
[2020-12-30 04:00] VITALS: BP 132/65
--- NOTE | 2020-12-30 07:30 | NUR ---
RECIEVED BEDSIDE REPORT. IN BED, FREE FROM SIGNS OF DISTRESS. DENIES NEEDS AT THIS TIME. BED LOW POSITION, CALL LIGHT IN REACH. WILL CONTINUE TO MONITOR.
[2020-12-30 07:52] LABS: BASOPHILS 0.4 % (0-2); EOSINOPHILS 3.7 % (0-7); HEMOGLOBIN 9.1 g/dL (13.5-17.5); LYMPHOCYTES 20.1 % (15-50); MCH 24.7 pg (26.0-34.0); MCHC 32.4 g/dL (31.0-37.0); MCV 76.2 fL (80.0-100.0); MEAN PLATELET VOLUME 7.3 fL (7.4-10.4); MONOCYTES 12.5 % (2-11); NEUTROPHILS 63.3 % (40-80); PLATELET COUNT 431 10x3/uL (130-400); RBC 3.67 10x6/uL (4.20-6.10); RDW 15.2 % (11.5-14.5); WBC 6.7 10x3/uL (4.8-10.8)
[2020-12-30 08:05] LABS: ALBUMIN 1.8 g/dL (3.4-5.0); ALKALINE PHOSPHATASE 54 U/L (30-120); ALT (SGPT) 9 U/L (10-68); BILIRUBIN - TOTAL 0.13 mg/dL (0.2-1.3); CALC OSMOLALITY 275 mosm/kg (275-300); CALCIUM 8.6 mg/dL (8.5-10.1); CARBON DIOXIDE 26.9 mmol/L (21.0-32.0); CHLORIDE - SERUM 104 mmol/L (98-107); CREATININE - SERUM 0.6 mg/dL (0.6-1.3); GLUCOSE 104 mg/dL (74-106); POTASSIUM - SERUM 3.3 mmol/L (3.5-5.1); PROTEIN - SERUM 6.5 g/dL (6.4-8.2); SODIUM 140 mmol/L (136-145); UREA NITROGEN 3 mg/dL (7-18); eGFR NON AFRICAN AMERICAN > 90 mL/min (90-120)
[2020-12-30 09:26] VITALS: BP 118/76
[2020-12-30 14:41] VITALS: BP 124/68
[2020-12-30 17:41] VITALS: BP 139/66
[2020-12-30 20:00] VITALS: BP 111/59
--- NOTE | 2020-12-30 20:00 | NUR ---
PT SITTING UP IN BED WITHOUT DISTRESS, AOX4. DENIES PAIN OR NEEDS AT THIS TIME. CL IN REACH, BED ALARM ON
[2020-12-31] VITALS (10 sets, daily range): BP systolic 106–162; BP diastolic 70–90
--- NOTE | 2020-12-31 00:30 | NUR ---
PT SITTING UP IN BED WITHOUT DISTRESS, ASSISTED TO BEDSIDE COMMODE TO HAVE BM AND BACK TO BED. SENT STOOL TO LAB FOR OCCULT STOOL. REMINDED PT HE IS NPO AFTER MIDNIGHT, VERBALIZED UNDERSTANDING. DENIES NEEDS. CL IN REACH, BED ALARM ON
--- NOTE | 2020-12-31 02:00 | NUR ---
DRESSINGS TO BILAT FEET CHANGED AT THIS TIME PER ORDER, HIBI CLENS GIVEN AND LINENS CHANGED. PT TOLERATED WELL. DENIES OTHER NEEDS. BED ALARM ON. CL IN REACH
[2020-12-31 06:07] LABS: BASOPHILS 0.7 % (0-2); EOSINOPHILS 4.1 % (0-7); HEMATOCRIT 27.2 % (42.0-54.0); MCH 24.9 pg (26.0-34.0); MCHC 33.1 g/dL (31.0-37.0); MCV 75.4 fL (80.0-100.0); MEAN PLATELET VOLUME 7.1 fL (7.4-10.4); MONOCYTES 9.9 % (2-11); NEUTROPHILS 65.3 % (40-80); PLATELET COUNT 447 10x3/uL (130-400); RBC 3.61 10x6/uL (4.20-6.10); RDW 15.7 % (11.5-14.5); WBC 6.7 10x3/uL (4.8-10.8)
[2020-12-31 06:26] LABS: ALBUMIN 1.8 g/dL (3.4-5.0); ALKALINE PHOSPHATASE 52 U/L (30-120); ALT (SGPT) 10 U/L (10-68); BILIRUBIN - TOTAL 0.16 mg/dL (0.2-1.3); CALC OSMOLALITY 275 mosm/kg (275-300); CALCIUM 8.7 mg/dL (8.5-10.1); CHLORIDE - SERUM 104 mmol/L (98-107); CREATININE - SERUM 0.6 mg/dL (0.6-1.3); GLUCOSE 96 mg/dL (74-106); MAGNESIUM - SERUM 1.9 mg/dL (1.8-2.4); POTASSIUM - SERUM 3.4 mmol/L (3.5-5.1); PROTEIN - SERUM 6.2 g/dL (6.4-8.2); SODIUM 140 mmol/L (136-145); eGFR NON AFRICAN AMERICAN > 90 mL/min (90-120)
[2020-12-31 06:27] LABS: UREA NITROGEN 5 mg/dL (7-18)
--- NOTE | 2020-12-31 07:02 | NUR ---
PT NPO FOR SURG. DRESSINGS NOTED TO BILAT FEET-CHANGED EARLY THIS AM. NO C/O PAIN AT PRESENT. STATES HAS WALLET-VERIFIED IT COULD BE LOCKED UP-ER REGISTRATION CALLED FOR THIS. BED ALARM ON. CALL LIGHT IN REACH
--- NOTE | 2020-12-31 11:46 | NUR ---
REHAB PRESCREEN RECEIVED. PATIENT'S PHYSICAL THERAPY EVAL IS PENDING. ONCE THIS IS IN, WE WILL START THE PRESCREEN PROCESS. IF HE IS APPROPRIATE, IF HE WANTS TO COME TO [facility], AND THE DOCTOR FEELS HE IS STABLE, WE MAY BE ABLE TO TAKE LATER THIS EVENING. I WILL LET LIS STRONG RN CM KNOW THE OUTCOME. THANK YOU FOR THE REFERRAL. JOSÉ MIGUEL GARRIDO RN CLINICAL LIAISON, INPATIENT REHAB.
--- NOTE | 2020-12-31 12:43 | NUR ---
TO SURG PER BED. VANCOMYCIN STILL INFUSING
--- NOTE | 2020-12-31 13:25 | NUR ---
HE IS ON THE PHONE NOW CALLING THE DAUGHTER - TRYING TO REACH HER TO EXPLAIN.
--- NOTE | 2020-12-31 13:25 | NUR ---
DR VAUGHN HERE TO FIND FAMILY TO TALK ABOUT PATIENT NEEDING A BKA HIS LEFT FOOT IS WORSE.
--- NOTE | 2020-12-31 13:48 | NUR ---
5988 SPOKE TO PT DAUGHTER SIMONE. DAUGHTER GAVE CONSENT TO CHANGE CONSENTED PROCEDURE TO LEFT LEG. WHEN PT BANDAGES WERE REMOVED, DOCTOR REALIZED DAMAGE TO LEFT LEG WAS MORE EXTENSIVE AND REQUIRED BELOW THE KNEE AMPUTATION RATHER THAN TRANSMETATARSAL AMPUTATION. DAUGHTER AGREED THAT IF HE NEEDED FURTHER SUGERY, IT SHOULD BE DONE NOW. DAUGHTER STATED "WELL, IF ITS ALL INFECTED AND HE NEEDS IT, HE DOESN'T WANT TO HAVE A BUNCH OF DIFFERENT SURGERIES." DAUGHTER CONSENTED TO LEFT BELOW THE KNEE ANPUTATION.
--- NOTE | 2020-12-31 14:33 | NUR ---
Nutrition follow-up: Pt NPO for BKA today Labs reviewed Wt: 150# PO intake has been good RDN will follow-up: 01/05/21
--- NOTE | 2020-12-31 14:58 | NUR ---
P[T REAMINS IN SURGERY
--- NOTE | 2020-12-31 16:01 | NUR ---
RETURNED FROM PACU PER BED. BILAT BKA NOTED. BILAT WILFRIDO WRAPS NOTED WITH ICE BAGS IN PLACE AND BILAT WOUND VACS. VS 97.9 HR 87 R 18 145/89 98% RA. NO COMPLAINTS OF PAIN AT PRESENT. CALL LIGHT IN REACH. NO FAMILY AT BEDSIDE CURRENTLY
--- NOTE | 2020-12-31 17:02 | NUR ---
ICE BAGS TO BILAT LOWER STUMPS. DRESSINGS REMAIN CLEAN AND DRY AND CONNECTED TO WOUND VAC X 2. CALL LIGHT IN REACH
--- NOTE | 2020-12-31 20:00 | NUR ---
PT SITTING UP IN BED WITHOUT DISTRESS, AOX4. DAUGHTER AT BEDSIDE. STUMP DRESSINGS CDI WITH WOUND VACS IN PLACE BILAT. IV LEFT FA INFUSING NS @ 150. PT STATES PAIN IS BETTER AFTER NORCO. DENIES OTHER NEEDS AT THIS TIME. CL IN REACH, BED ALARM ON
[2021-01-01] VITALS: BP 110/66
[2021-01-01 04:00] VITALS: BP 111/67
[2021-01-01 06:26] LABS: BASOPHILS 0.7 % (0-2); EOSINOPHILS 4.3 % (0-7); HEMATOCRIT 26.3 % (42.0-54.0); HEMOGLOBIN 8.6 g/dL (13.5-17.5); LYMPHOCYTES 20.6 % (15-50); MCH 25.2 pg (26.0-34.0); MCHC 32.9 g/dL (31.0-37.0); MCV 76.6 fL (80.0-100.0); MONOCYTES 8.9 % (2-11); NEUTROPHILS 65.5 % (40-80); PLATELET COUNT 418 10x3/uL (130-400); RBC 3.43 10x6/uL (4.20-6.10); RDW 15.7 % (11.5-14.5); WBC 6.5 10x3/uL (4.8-10.8)
[2021-01-01 06:46] LABS: ALBUMIN 1.9 g/dL (3.4-5.0); ALKALINE PHOSPHATASE 61 U/L (30-120); ALT (SGPT) 9 U/L (10-68); BILIRUBIN - TOTAL 0.16 mg/dL (0.2-1.3); CALC OSMOLALITY 275 mosm/kg (275-300); CALCIUM 8.5 mg/dL (8.5-10.1); CARBON DIOXIDE 26.8 mmol/L (21.0-32.0); CHLORIDE - SERUM 104 mmol/L (98-107); CREATININE - SERUM 0.8 mg/dL (0.6-1.3); GLUCOSE 122 mg/dL (74-106); MAGNESIUM - SERUM 1.9 mg/dL (1.8-2.4); POTASSIUM - SERUM 3.4 mmol/L (3.5-5.1); PROTEIN - SERUM 6.5 g/dL (6.4-8.2); SODIUM 138 mmol/L (136-145); UREA NITROGEN 9 mg/dL (7-18); eGFR NON AFRICAN AMERICAN > 90 mL/min (90-120)
--- NOTE | 2021-01-01 07:42 | NUR ---
ALERT AND ORIENTED. ASSESSMENT COMPLETE. REQUESTING ITEMS FROM [facility]. WILL CALL. CALL HAGAN AND PERSONAL ITEMS IN REACH. WILL CONTINUE TO MONITOR.
[2021-01-01 08:23] VITALS: BP 135/74
--- NOTE | 2021-01-01 12:06 | NUR ---
PATIENT'S BELONGINGS RETURNED TO PATIENT BY NURSE FROM ER FROM PATIENT LOCKUP.
[2021-01-01 12:19] VITALS: BP 159/89
[2021-01-01 17:17] VITALS: BP 153/83
[2021-01-01 21:43] VITALS: BP 166/94
[2021-01-02 00:53] VITALS: BP 172/92
--- NOTE | 2021-01-02 03:16 | NUR ---
I have reviewed this patient and I concur with the Shift Assessment completed by the Licensed Practical Nurse today this shift.
[2021-01-02 05:38] VITALS: BP 157/77
[2021-01-02 06:08] LABS: BASOPHILS 0.4 % (0-2); EOSINOPHILS 3.2 % (0-7); HEMATOCRIT 27.5 % (42.0-54.0); LYMPHOCYTES 15.4 % (15-50); MCH 25.1 pg (26.0-34.0); MCHC 32.8 g/dL (31.0-37.0); MCV 76.4 fL (80.0-100.0); MEAN PLATELET VOLUME 6.8 fL (7.4-10.4); MONOCYTES 8.2 % (2-11); NEUTROPHILS 72.8 % (40-80); PLATELET COUNT 442 10x3/uL (130-400); RDW 15.7 % (11.5-14.5)
[2021-01-02 06:22] LABS: ALBUMIN 1.9 g/dL (3.4-5.0); ALKALINE PHOSPHATASE 55 U/L (30-120); ALT (SGPT) 9 U/L (10-68); BILIRUBIN - TOTAL 0.21 mg/dL (0.2-1.3); CALCIUM 8.6 mg/dL (8.5-10.1); CARBON DIOXIDE 27.5 mmol/L (21.0-32.0); CHLORIDE - SERUM 105 mmol/L (98-107); CREATININE - SERUM 0.7 mg/dL (0.6-1.3); GLUCOSE 106 mg/dL (74-106); POTASSIUM - SERUM 3.9 mmol/L (3.5-5.1); PROTEIN - SERUM 6.5 g/dL (6.4-8.2); SODIUM 140 mmol/L (136-145); eGFR NON AFRICAN AMERICAN > 90 mL/min (90-120)
[2021-01-02 06:23] LABS: CALC OSMOLALITY 275 mosm/kg (275-300); UREA NITROGEN 5 mg/dL (7-18)
[2021-01-02 06:31] LABS: WBC 8.2 10x3/uL (4.8-10.8)
--- NOTE | 2021-01-02 08:09 | NUR ---
AAOX4 UPON ENTERING. ADMINISTERED MORNING MEDICATION, NO DIFFICULTIES. SITING UPRIGHT IN BED. EMPTIED 600 ML OUT OF URINAL. DENIES ANY NEEDS AT THIS TIME. BED IN LOWEST POSITION, BED RAILS X2, CALL LIGHT WITHIN REACH. WILL CONTINUE POC. ASSESSMENT PERFORMED AT THIS TIME.
--- NOTE | 2021-01-02 10:00 | NUR ---
HUNG FLUIDS AND IV ABX. TOLERATING WELL. TRANSFERRED SELF TO BEDSIDE COMMODE. DENIES FURTHER NEEDS. WILL CONTINUE POC.
[2021-01-02 10:28] VITALS: BP 151/86
--- NOTE | 2021-01-02 10:57 | NUR ---
RESTING COMFORTABLY. HUNG IV ABX, TOLERATING WELL. DENIES ANY NEEDS. WILL CONTINUE POC.
[2021-01-02 14:19] VITALS: BP 186/84
--- NOTE | 2021-01-02 15:48 | NUR ---
PRN MORPHINE FOR PAIN, TOLERATED WELL. HUNG IV ABX AND FLUIDS. RESTING UPRIGHT IN BED. DENIES FURTHER NEEDS. WILL CONTINUE POC.
--- NOTE | 2021-01-02 16:57 | NUR ---
I have reviewed this patient and I concur with the Shift Assessment completed by the Licensed Practical Nurse today this shift.
[2021-01-02 18:36] VITALS: BP 150/85
[2021-01-02 21:03] VITALS: BP 123/80
--- NOTE | 2021-01-03 02:59 | NUR ---
I have reviewed this patient and I concur with the Shift Assessment completed by the Licensed Practical Nurse today this shift.
[2021-01-03 05:13] VITALS: BP 154/82
[2021-01-03 06:59] LABS: BASOPHILS 0.6 % (0-2); EOSINOPHILS 3.8 % (0-7); HEMATOCRIT 26.4 % (42.0-54.0); HEMOGLOBIN 8.6 g/dL (13.5-17.5); LYMPHOCYTES 17.5 % (15-50); MCH 25.2 pg (26.0-34.0); MCHC 32.6 g/dL (31.0-37.0); MCV 77.2 fL (80.0-100.0); MEAN PLATELET VOLUME 6.8 fL (7.4-10.4); MONOCYTES 9.9 % (2-11); NEUTROPHILS 68.2 % (40-80); PLATELET COUNT 420 10x3/uL (130-400); RBC 3.42 10x6/uL (4.20-6.10); RDW 16.1 % (11.5-14.5); WBC 6.4 10x3/uL (4.8-10.8)
[2021-01-03 07:14] LABS: ALBUMIN 1.9 g/dL (3.4-5.0); ALKALINE PHOSPHATASE 54 U/L (30-120); ALT (SGPT) 10 U/L (10-68); BILIRUBIN - TOTAL 0.28 mg/dL (0.2-1.3); CALC OSMOLALITY 275 mosm/kg (275-300); CALCIUM 8.4 mg/dL (8.5-10.1); CARBON DIOXIDE 29.9 mmol/L (21.0-32.0); CHLORIDE - SERUM 104 mmol/L (98-107); CREATININE - SERUM 0.8 mg/dL (0.6-1.3); GLUCOSE 98 mg/dL (74-106); POTASSIUM - SERUM 3.3 mmol/L (3.5-5.1); PROTEIN - SERUM 6.4 g/dL (6.4-8.2); SODIUM 140 mmol/L (136-145); UREA NITROGEN 3 mg/dL (7-18); eGFR NON AFRICAN AMERICAN > 90 mL/min (90-120)
[2021-01-03 09:56] VITALS: BP 135/79
[2021-01-03 14:06] VITALS: BP 131/79
--- NOTE | 2021-01-03 18:00 | NUR ---
I have reviewed this patient and I concur with the Shift Assessment completed by the Licensed Practical Nurse today this shift.
[2021-01-03 18:38] VITALS: BP 148/75
[2021-01-04] VITALS: BP 168/73
--- NOTE | 2021-01-04 02:51 | NUR ---
I have reviewed this patient and I concur with the Shift Assessment completed by the Licensed Practical Nurse today this shift.
[2021-01-04 04:00] VITALS: BP 156/75
[2021-01-04 06:34] LABS: BASOPHILS 0.6 % (0-2); EOSINOPHILS 3.2 % (0-7); HEMATOCRIT 27.6 % (42.0-54.0); HEMOGLOBIN 9.2 g/dL (13.5-17.5); LYMPHOCYTES 16.7 % (15-50); MCH 25.4 pg (26.0-34.0); MCHC 33.3 g/dL (31.0-37.0); MCV 76.3 fL (80.0-100.0); MEAN PLATELET VOLUME 6.6 fL (7.4-10.4); MONOCYTES 9.5 % (2-11); PLATELET COUNT 416 10x3/uL (130-400); RBC 3.61 10x6/uL (4.20-6.10); RDW 15.9 % (11.5-14.5); WBC 7.1 10x3/uL (4.8-10.8)
[2021-01-04 06:55] LABS: ALBUMIN 1.8 g/dL (3.4-5.0); ALKALINE PHOSPHATASE 58 U/L (30-120); BILIRUBIN - TOTAL 0.19 mg/dL (0.2-1.3); CALCIUM 8.5 mg/dL (8.5-10.1); CARBON DIOXIDE 27.9 mmol/L (21.0-32.0); CHLORIDE - SERUM 106 mmol/L (98-107); CREATININE - SERUM 0.8 mg/dL (0.6-1.3); GLUCOSE 96 mg/dL (74-106); POTASSIUM - SERUM 3.3 mmol/L (3.5-5.1); PROTEIN - SERUM 6.2 g/dL (6.4-8.2); SODIUM 140 mmol/L (136-145); eGFR NON AFRICAN AMERICAN > 90 mL/min (90-120)
[2021-01-04 07:05] LABS: ALT (SGPT) 7 U/L (10-68); CALC OSMOLALITY 275 mosm/kg (275-300); UREA NITROGEN 5 mg/dL (7-18)
[2021-01-04 10:02] VITALS: BP 144/68
[2021-01-04 13:32] VITALS: BP 175/90
--- NOTE | 2021-01-04 15:54 | NUR ---
I have reviewed this patient and I concur with the Shift Assessment completed by the Licensed Practical Nurse today this shift.
[2021-01-04 17:35] VITALS: BP 137/69
[2021-01-04 20:00] VITALS: BP 123/66
--- NOTE | 2021-01-05 03:50 | NUR ---
I have reviewed this patient and I concur with the Shift Assessment completed by the Licensed Practical Nurse today this shift.
[2021-01-05 04:00] VITALS: BP 151/87
[2021-01-05 06:28] LABS: BASOPHILS 0.3 % (0-2); EOSINOPHILS 0.6 % (0-7); HEMATOCRIT 23.8 % (42.0-54.0); HEMOGLOBIN 7.8 g/dL (13.5-17.5); LYMPHOCYTES 9.6 % (15-50); MCH 25.3 pg (26.0-34.0); MCHC 32.9 g/dL (31.0-37.0); MCV 76.9 fL (80.0-100.0); MONOCYTES 7.6 % (2-11); NEUTROPHILS 81.9 % (40-80); PLATELET COUNT 391 10x3/uL (130-400); RDW 16.1 % (11.5-14.5)
[2021-01-05 06:30] LABS: WBC 10.2 10x3/uL (4.8-10.8)
[2021-01-05 06:46] LABS: ALBUMIN 1.9 g/dL (3.4-5.0); ALKALINE PHOSPHATASE 57 U/L (30-120); BILIRUBIN - TOTAL 0.17 mg/dL (0.2-1.3); CALCIUM 8.2 mg/dL (8.5-10.1); CARBON DIOXIDE 27.5 mmol/L (21.0-32.0); CHLORIDE - SERUM 106 mmol/L (98-107); GLUCOSE 109 mg/dL (74-106); POTASSIUM - SERUM 3.6 mmol/L (3.5-5.1); PROTEIN - SERUM 6.1 g/dL (6.4-8.2); SODIUM 141 mmol/L (136-145); eGFR NON AFRICAN AMERICAN 78 mL/min (90-120)
[2021-01-05 06:49] LABS: ALT (SGPT) 10 U/L (10-68); CALC OSMOLALITY 280 mosm/kg (275-300); UREA NITROGEN 9 mg/dL (7-18)
--- NOTE | 2021-01-05 08:40 | NUR ---
WE ARE STILL FOLLOWING MR GAUTHIER. WE WILL SEE WHAT HE IS ABLE TO DO, AND WHAT HE WANTS TO DO WHEN HE IS POD#2 OF HIS SECOND SURGERY TODAY. JOSÉ MIGUEL GARRIDO RN CLINICAL LIAISON, INPATIENT REHAB.
[2021-01-05 08:49] VITALS: BP 128/71
[2021-01-05 11:56] VITALS: BP 144/70
--- NOTE | 2021-01-05 13:57 | NUR ---
Nutrition reassessment: Visited with pt during meal rounds. Pt reports good appetite an ate 100% of breakfast. Pt agreed to try chocolate Boost to increase kcal/protein intake. Diet order: Regular PO intake 75-100% of most meals Labs reviewed Pt with bilateral BKA's Admit wt: 150#; no new wt since BKA Estimated needs remain the same as initial assessment on 12/28/20 Nutrition diagnosis: Increased protein needs R/T wounds AEB the need for healing. Nutrition goals: - PO intake 75-100% of all meals - Consume at least 75% of nutritional supplements offered - Stable wt Nutrition interventions: Please get a current wt to chart Will continue to provide food choices with selective menus and honor food preferences. RDN will follow-up on pts progress toward nutrition goals in 3-5 days.
[2021-01-05 16:31] VITALS: BP 137/71
[2021-01-05 20:00] VITALS: BP 177/86
[2021-01-06] VITALS: BP 150/83
--- NOTE | 2021-01-06 02:34 | NUR ---
RESTING IN BED AROUSED EASILY, MEDICATED FOR PAIN ORDERED, WILFRIDO WRAP DRESSINGS INTACT TO BILATERAL STUMPS, OLD DRAINAGE NOTED BILATERALY, RIGHT STUMP APPEARS TO BE DRAINING MORE AT THIS TIME, WILL MONITOR SEE SHIFT ASSESSMENT, CALL LIGHT IN REACH
--- NOTE | 2021-01-06 02:38 | NUR ---
BATH GIVEN LINENS CHANGED AND ABD PAD PLACED OVER WILFRIDO WRAP DRESSING AND SECURED WITH KERLIX AND TAPE
[2021-01-06 04:00] VITALS: BP 156/89
[2021-01-06 06:39] LABS: BASOPHILS 0.3 % (0-2); EOSINOPHILS 0.7 % (0-7); HEMATOCRIT 22.1 % (42.0-54.0); LYMPHOCYTES 12.3 % (15-50); MCH 24.8 pg (26.0-34.0); MCHC 32.4 g/dL (31.0-37.0); MCV 76.6 fL (80.0-100.0); MEAN PLATELET VOLUME 6.9 fL (7.4-10.4); MONOCYTES 9.4 % (2-11); NEUTROPHILS 77.3 % (40-80); PLATELET COUNT 327 10x3/uL (130-400); RBC 2.89 10x6/uL (4.20-6.10); RDW 16.6 % (11.5-14.5); WBC 9.8 10x3/uL (4.8-10.8)
[2021-01-06 07:07] LABS: ALBUMIN 1.9 g/dL (3.4-5.0); ALKALINE PHOSPHATASE 53 U/L (30-120); ALT (SGPT) 19 U/L (10-68); BILIRUBIN - TOTAL 0.26 mg/dL (0.2-1.3); CALC OSMOLALITY 275 mosm/kg (275-300); CALCIUM 8.6 mg/dL (8.5-10.1); CARBON DIOXIDE 26.6 mmol/L (21.0-32.0); CHLORIDE - SERUM 104 mmol/L (98-107); CREATININE - SERUM 0.9 mg/dL (0.6-1.3); GLUCOSE 105 mg/dL (74-106); POTASSIUM - SERUM 3.5 mmol/L (3.5-5.1); PROTEIN - SERUM 6.3 g/dL (6.4-8.2); SODIUM 139 mmol/L (136-145); UREA NITROGEN 7 mg/dL (7-18); eGFR NON AFRICAN AMERICAN 88 mL/min (90-120)
[2021-01-06 07:19] LABS: HEMOGLOBIN 7.2 g/dL (13.5-17.5)
--- NOTE | 2021-01-06 07:47 | NUR ---
ALERT AND ORIENTED. ASSESSMENT COMPLETE. SLIGHT BLEED NOTED TO RIGHT BKA. PLAVIX HELD. WILL NOTIFY MD AND CHANGE DRSG. PATIENT DENIES NEEDS. NOTIFIED THAT NEEDS 1U BLOOD. WILL MAKE SURE CONSENT ON CHART AND TRANSFUSE BLOOD. WILL CONTINUE TO MONITOR.
[2021-01-06 08:11] VITALS: BP 163/92
--- NOTE | 2021-01-06 09:10 | NUR ---
BLOOD TRANSFUSION UNIT 1 INITIATED. VSS. WILL CONTINUE TO MONITOR. DRSG TO RIGHT BKA REINFORCED. SHABBIR JACOB AWARE OF BLEEDING.
--- NOTE | 2021-01-06 11:45 | NUR ---
IV LEAKING TO LFA. REMOVED WITH TIP INTACT. RESITED TO RFA AFTER TWO ATTEMPTS WITH 20G IV. ABX RUNNING NOW.
--- NOTE | 2021-01-06 14:46 | NUR ---
OT NOTE: ATTEMPTED EVAL ON THIS DATE HOWEVER, PT RECEIVING BLOOD. WILL ATTEMPT LATER LIS NAVA, OTR/L
[2021-01-06 16:03] LABS: HEMATOCRIT 22.5 % (42.0-54.0)
[2021-01-06 16:19] VITALS: BP 155/78
--- NOTE | 2021-01-06 16:26 | NUR ---
PATIENT TEMP 104.8. SHABBIR JACOB MADE AWARE AND STATES WILL PLACE ORDERS.
[2021-01-06 16:30] LABS: HEMOGLOBIN 7.2 g/dL (13.5-17.5)
--- NOTE | 2021-01-06 17:21 | NUR ---
PATIENT TEMP NOW 100.1. SUBWAY GUARD AWARE.
[2021-01-06 20:00] VITALS: BP 124/60
--- NOTE | 2021-01-06 20:15 | NUR ---
2ND UNIT OF PRBC INITIATED AT THIS TIME. VSS
[2021-01-06 21:49] LABS: BILIRUBIN NEGATIVE (NEGATIVE); KETONE NEGATIVE (NEGATIVE); NITRITE NEGATIVE (NEGATIVE); UROBILINOGEN NORMAL mg/dL (< 2)
[2021-01-06 21:50] LABS: BACTERIA FEW HPF (NONE SEEN); WHITE CELLS - URINE 0-5 HPF (0-1)
--- NOTE | 2021-01-06 22:20 | NUR ---
PRBC COMPLETE AT THIS TIME. VSS
--- NOTE | 2021-01-06 22:35 | NUR ---
3RD UNIT PRBC INITIATED AT THIS TIME
--- NOTE | 2021-01-07 00:55 | NUR ---
PRBC COMPLETE AT THIS TIME. VSS
[2021-01-07 04:00] VITALS: BP 172/85
[2021-01-07 06:21] LABS: BASOPHILS 0.4 % (0-2); EOSINOPHILS 1.2 % (0-7); LYMPHOCYTES 12.1 % (15-50); MCH 26.2 pg (26.0-34.0); MCHC 32.7 g/dL (31.0-37.0); MEAN PLATELET VOLUME 7.2 fL (7.4-10.4); MONOCYTES 9.8 % (2-11); NEUTROPHILS 76.5 % (40-80); PLATELET COUNT 309 10x3/uL (130-400); RDW 16.6 % (11.5-14.5); WBC 11.1 10x3/uL (4.8-10.8)
[2021-01-07 06:32] LABS: HEMATOCRIT 28.8 % (42.0-54.0); HEMOGLOBIN 9.4 g/dL (13.5-17.5)
[2021-01-07 06:46] LABS: ALBUMIN 1.9 g/dL (3.4-5.0); ALKALINE PHOSPHATASE 57 U/L (30-120); ALT (SGPT) 18 U/L (10-68); BILIRUBIN - TOTAL 0.45 mg/dL (0.2-1.3); CALC OSMOLALITY 271 mosm/kg (275-300); CALCIUM 8.4 mg/dL (8.5-10.1); CARBON DIOXIDE 25.9 mmol/L (21.0-32.0); CHLORIDE - SERUM 104 mmol/L (98-107); CREATININE - SERUM 0.8 mg/dL (0.6-1.3); GLUCOSE 101 mg/dL (74-106); POTASSIUM - SERUM 3.4 mmol/L (3.5-5.1); PROTEIN - SERUM 6.2 g/dL (6.4-8.2); SODIUM 137 mmol/L (136-145); UREA NITROGEN 6 mg/dL (7-18); eGFR NON AFRICAN AMERICAN > 90 mL/min (90-120)
--- NOTE | 2021-01-07 07:31 | NUR ---
ALERT AND ORIENTED. ASSESSMENT COMPLETE. DENIES NEEDS. BED LOW. CALL HAGAN AND PERSONAL ITEMS IN REACH. WILL CONTINUE TO MONITOR.
[2021-01-07 09:52] VITALS: BP 157/89
[2021-01-07 12:36] VITALS: BP 143/84
[2021-01-07 16:33] VITALS: BP 154/94
--- NOTE | 2021-01-07 20:00 | NUR ---
PT SITTING UP IN BED WITHOUT DISTRESS, AOX4. DAUGHTER AT BEDSIDE. DENIES NEEDS AT THIS TIME. CL IN REACH
[2021-01-07 20:12] VITALS: BP 152/74
[2021-01-08 04:00] VITALS: BP 151/67
[2021-01-08 07:20] LABS: ALBUMIN 1.9 g/dL (3.4-5.0); ALKALINE PHOSPHATASE 56 U/L (30-120); ALT (SGPT) 21 U/L (10-68); BILIRUBIN - TOTAL 0.49 mg/dL (0.2-1.3); CALC OSMOLALITY 273 mosm/kg (275-300); CALCIUM 8.5 mg/dL (8.5-10.1); CHLORIDE - SERUM 104 mmol/L (98-107); CREATININE - SERUM 0.7 mg/dL (0.6-1.3); GLUCOSE 90 mg/dL (74-106); POTASSIUM - SERUM 3.5 mmol/L (3.5-5.1); PROTEIN - SERUM 6.4 g/dL (6.4-8.2); SODIUM 138 mmol/L (136-145); UREA NITROGEN 7 mg/dL (7-18); eGFR NON AFRICAN AMERICAN > 90 mL/min (90-120)
[2021-01-08 07:22] LABS: BASOPHILS 0.3 % (0-2); EOSINOPHILS 1.3 % (0-7); HEMATOCRIT 29.9 % (42.0-54.0); LYMPHOCYTES 16.1 % (15-50); MCH 26.7 pg (26.0-34.0); MCHC 33.4 g/dL (31.0-37.0); MEAN PLATELET VOLUME 7.3 fL (7.4-10.4); MONOCYTES 10.7 % (2-11); NEUTROPHILS 71.6 % (40-80); PLATELET COUNT 317 10x3/uL (130-400); RBC 3.73 10x6/uL (4.20-6.10); RDW 16.8 % (11.5-14.5); WBC 10.2 10x3/uL (4.8-10.8)
[2021-01-08 08:42] VITALS: BP 157/80
--- NOTE | 2021-01-08 10:09 | NUR ---
ALERT AND ORIENTED. ASSESSMENT COMPLETE. DENIES NEEDS. BED LOW. CALL HAGAN AND PERSONAL ITEMS IN REACH. WILL CONTINUE TO MONITOR.
[2021-01-08 11:20] VITALS: BP 161/73
--- NOTE | 2021-01-08 12:24 | NUR ---
Nutrition Follow-up: Diet: Regular + Chocolate Boost TID PO intake: ate 50% states that his appetite is "pretty good." States that he is drinking Boost. Noted 4 unopened cartons of Boost on bedside table. Last BM: 12/31/20 Wt: 150# (12/29/20)- no new weight Meds noted: NS@50, probiotics Labs noted: alb 1.9(L) Recommend continue current diet and oral nutrition supplements. Will continue to honor food preferences. Encouraged PO intake. Recommend MD to consider adding bowel regimen to promote BM regularity and hopefully help increase appetite. RD will follow-up 01/12/21.
[2021-01-08 12:53] VITALS: BP 161/73
[2021-01-08] MEDS ORDERED: HYDROCODONE-AC1 EAC2 PO (13:58)
--- NOTE | 2021-01-08 14:55 | OP ---
PATIENT NAME: KATHRYN GAUTHIER MEDICAL RECORD: [id number] :[birth year] LOCATION:[facility] [place] ADMISSION DATE:12/27/20 SURGEON: MONIKA RAMOS MD DATE OF OPERATION: 12/31/2020 PREOPERATIVE DIAGNOSES: 1. Frostbite injuries, bilateral feet and toes. 2. Bilateral foot infection. 3. Open wounds, bilateral feet. POSTOPERATIVE DIAGNOSES: 1. Frostbite injuries, bilateral feet and toes. 2. Bilateral foot infection. 3. Open wounds, bilateral feet. PROCEDURE PERFORMED: 1. Open below-knee amputation, right lower extremity. 2. Application of wound VAC, right lower extremity (greater than 50 cm-squared). 3. Open below-knee amputation, left lower extremity. 4. Application of wound VAC, left lower extremity (greater than 50 cm-squared). INDICATIONS FOR THE PROCEDURE: Mr. Gauthier is a 75-year-old male with a history of frostbite injuries to bilateral feet and toes in September. He was seen and evaluated at that time and noted to have frostbite injuries to bilateral feet, worse on the right. He has refused surgery to this point and they have been performing local wound care at home. He has developed worsening infection in his feet and is admitted for medical care. Dr. Villagomez saw him at the bedside and performed amputation of the toes. There was an infection that continued to track into the mid foot of the right leg. Initial evaluation of the left foot appeared to just involve the toes and the plan was to perform right below-knee amputation and left transmetatarsal amputation. Risks, benefits and alternatives of surgery were discussed with the patient and his family and consent was obtained. Once the patient was asleep and full evaluation of the feet was able to be performed, it was discovered that the foot pad of the left foot that was involved the entire sole of the foot extending all the way into the heel pad with full thickness injury. There did not appear to be any way to salvage the foot with a transmetatarsal amputation. I spoke with the patient's daughter regarding these findings and the need for below-knee amputation on the left foot as well and she was in agreement. She has been informed of his condition on multiple occasions to this point and believes he will benefit from amputation in order to begin recovering from these injuries. Verbal consent was obtained on the phone and this was verified by the nursing staff. We then planned to proceed with bilateral open below-knee amputations with placement of wound VAC. DESCRIPTION OF THE PROCEDURE: The patient was met in the holding area where his identity and confirmation of procedure was performed. The lower extremities were marked and he was taken to the operating room where he was placed supine on the operating table, and anesthesia was administered. Tourniquet was applied to bilateral thighs and the lower extremities were prepped and draped in a sterile fashion. The patient is on scheduled antibiotics; therefore, did not receive any immediately preop. A timeout was performed prior to initiating the case. We began with the right lower extremity. The leg was exsanguinated and the OPERATIVE REPORT [id number] KATHRYN GAUTHIER tourniquet was raised. Total tourniquet time was 8 minutes. The foot had been covered during the preparation for surgery. A circumferential incision was made at the distal lower leg above the ankle. We incised through the skin and subcutaneous tissues down to the fascia. Cautery was then used to isolate the tibia. The tibia was then transected with a saw. The fibula was then isolated and again transected with the saw. An amputation knife was then used to remove the remainder of the lower leg. The foot was sent for specimen. The vascular bundles were identified and tied. These were tied off with 0 silk ties. Tourniquet was let down and hemostasis was confirmed. There was quite a bit of swelling in the tissues, but did not appear to be any spread of infection and the muscles showed good bleeding and contractility. Once adequate hemostasis was obtained, the wound was irrigated thoroughly with saline. A wound VAC was then applied to the end of the stump measuring 9 x 6 cm. Wound VAC was applied and noted to have good compression. This was confirmed with the machine in the operating room. We then turned our attention to the left leg. The leg was exsanguinated and the tourniquet was raised. Total tourniquet time was 10 minutes. The distal foot was wrapped in a stockinette with Coban. A circumferential incision was made over the lower leg just above the ankle. We incised through the skin and subcutaneous tissues down to the fascia. The fascia was then incised with the cautery and the tibia was isolated. A saw was used to transect the tibia. The fibula was then isolated and cut with the saw as well. The remainder of the tissues were removed with an amputation knife and the foot was sent for specimen. The vascular bundles were identified and tagged. These were tied off with 0 silk ties. Tourniquet was then let down and hemostasis was confirmed. Cautery was used to cauterize any further bleeding from the tissues. Once adequate hemostasis was obtained, the leg was irrigated thoroughly with saline. A wound VAC was then applied to the stump measuring 9 x 6 cm. The wound VAC was applied and attached to the machine and noted to have good compression. The leg was then covered with cast padding and Paulino wrap for both of the lower legs. The patient was then turned back over to anesthesia where he was awakened and taken to recovery room in stable condition. POSTOPERATIVE PLAN: The patient is going to return to the floor for continued postoperative care. We will continue his IV antibiotics and plan to return to the operating room on Monday for mobilization of bilateral knee amputations. COMPLICATIONS: None. ESTIMATED BLOOD LOSS: 25 mL. ANESTHESIA: General with peripheral nerve block. TRANSINT:[id number] Voice Confirmation ID: [id number] DOCUMENT ID: [id number] MONIKA RAMOS MD at 1455 CC: [id number] DICTATION DATE: 12/31/20 1503 MECHANICAL SERVICE TECHNICIAN: 12/31/20 1653 ADM IN [facility] [address] [place] [address]
--- NOTE | 2021-01-08 14:58 | OP ---
PATIENT NAME: KATHRYN GAUTHIER MEDICAL RECORD: [id number] :49 LOCATION:D[facility] [place] ADMISSION DATE:12/27/20 SURGEON: MONIKA RAMOS MD DATE OF OPERATION: 01/04/2021 PREOPERATIVE DIAGNOSIS: Frostbite injury/infection bilateral feet and toes, status post bilateral open below-knee amputation. POSTOPERATIVE DIAGNOSIS: Frostbite injury/infection bilateral feet and toes, status post bilateral open below-knee amputation. PROCEDURE PERFORMED: 1. Right below-knee amputation. 2. Left below-knee amputation. INDICATIONS FOR THE PROCEDURE: Mr. Gauthier is a 75-year-old male who sustained frostbite injuries to bilateral feet in September. He had been delaying surgery until he began developing erythema in his feet and became febrile. He was admitted, noted to have gangrene of both feet and toes. He was taken to the operating room for open bilateral lower extremity amputations. Wound VACs were placed and he returns today for a formalization and closure. Risks, benefits and alternatives of surgery were discussed with the patient and his family and consent was obtained. DESCRIPTION OF THE PROCEDURE: The patient was met in the holding area where his identity and confirmation of procedure was performed. Lower extremity was marked. He was taken to the operating room where he was placed supine on the operating table and anesthesia was administered. Tourniquets were applied to both thighs and the legs were prepped and draped in a sterile fashion. The patient is on scheduled antibiotics; therefore, did not receive any immediately preop. A timeout was performed prior to initiating the case. We began with the right lower extremity. The leg was exsanguinated and the tourniquet was raised. Total tourniquet time was 68 minutes. Our skin edges were incised for amputation 15 cm below the joint line. The tissue flaps were made and we then used cautery to transect the tissues at the level of the tibia. A menendez elevator was used to elevate the tissues from the tibia. Once the tibia was isolated, we then transected the tibia with a saw. Continued with cautery through the anterior and lateral compartments to isolate the fibula. The tissues were then protected and the fibula was cut just proximal to the tibia. The amputation knife was then used to remove the anterior aspect of the lower leg from the posterior compartment and this was sent for specimen. The posterior compartment was then debulked and the remainder of these tissues were removed. The anterior aspect of the tibia was trimmed and smoothed to a level surface. The vascular bundles were then identified and tied. These were tied off with 0 silk suture. Our posterior flap was raised and the gastroc was cut at the appropriate level for closure. The tourniquet was then let down and hemostasis was obtained from any remaining bleeding structures. The wound was irrigated thoroughly with saline. Tourniquet was then raised again and we continue with our closure. The gastrocs was reapproximated to the anterior compartment fascia with 0 Vicryl suture. We performed a closure of this along the entire incision. We then tailored our skin flap and the sural nerve was identified and cut proximally after pulling traction. Skin edges were trimmed accordingly and these were reapproximated with 2-0 Vicryl suture. The skin edges were then closed with 3-0 nylon. A towel was placed over the end of stump and it was covered with a stockinette. Tourniquet was let down and we then turned our attention to the OPERATIVE REPORT [id number] KATHRYN GAUTHIER left lower extremity. Left lower extremity was exsanguinated and the tourniquet was raised. Total tourniquet time was 83 minutes. We began by drawing the skin incisions for our flap and a scalpel was then used to make these incisions. We then used cautery to release the anterior compartment and dissect down to isolate the tibia. A menendez elevator was used to elevate tissue off the tibia and our tibia was then transected with the saw. With the tissue all over the anterolateral compartments was continued to be released as the fibula was isolated. The fibula was then protected and was cut just proximal to the tibia. Tissue was then released from the posterior aspect of the tibia and fibula with the amputation knife, removing the anterior lower leg. This was sent for specimen. The posterior flap was then debulked with a cautery. The vascular bundles were identified, tagged and tied off with 0 silk suture. The posterior flap was then brought up and cut at the appropriate level to allow for reapproximation. The gastrocsoleus was a little bigger on the side and it was debulked some for closure. The tourniquet was then let down and hemostasis was obtained in the remaining deep remaining bleeding vessels. Wound was irrigated thoroughly with saline. The tourniquet was then again raised and we continued with our closure. The posterior compartment was reapproximated to the anterior fascia with 0 Vicryl suture. This was performed along the entire length of our wound. The skin was then reapproximated with 2-0 Vicryl and the skin edges were cut to complete our closure. During this the sural nerve was identified and traction was applied and it was cut proximally. The skin was then closed with a 3-0 nylon suture. A sterile dressing was placed. We then turned our attention back to the right lower extremity and a sterile dressing was applied to this leg as well. Both were covered with Paulino wraps. The patient was then turned back over to anesthesia where he was awakened, extubated, and taken to recovery room in stable condition. POSTOPERATIVE PLAN: The patient is going to return to the floor for continued postoperative care. We will continue his IV antibiotics for another 48 hours. Physical therapy will be consulted to assist with mobilization and transfer training. He will likely need rehab or [facility] facility assistance until he can be fitted for prosthesis. COMPLICATIONS: None. ESTIMATED BLOOD LOSS: 100 mL. ANESTHESIA: General. TRANSINT:[id number] Voice Confirmation ID: [id number] DOCUMENT ID: [id number] MONIKA RAMOS MD at 1458 CC: [id number] DICTATION DATE: 01/04/21 1647 TOWER OPERATOR: 01/04/21 1749 ADM IN [id number] [place] [address]
--- NOTE | 2021-01-08 16:01 | MORECARE ---
CASE MANAGEMENT DISCHARGE SUMMARY PATIENT: KATHRYN GAUTHIER UNIT: [id number] ADM DATE: 12/27/20 AGE: 75 : 47 SEX: M ROOM/BED: D.2207 AUTHOR: PORTIA,DOC PHYSICIAN: REFERRING PHYSICIAN: BOB ALVARADO MD DATE OF SERVICE: 01/08/21 Case Management Discharge Planning Summary DCP REVIEW SUMMARY ANTICIPATED D/C DATE: EXPECTED LOS : CASE STATUS: DCP Initiated INITIAL REVIEW: 12/27/2020 INITIAL REVIEWER: Gisella Washington FINAL DISCHARGE DISPOSITION: 62 : Discharged/Trans to Rehab Facility Including Distinct Units of a Hospital FINAL REVIEWER: FINAL REVIEW DATE: DCP Focus Questions & Answers QUESTION: ANSWER : PATIENT: KATHRYN GAUTHIER ENCOUNTER: [id number] MEDICAL RECORD#: [id number] ADMISSION DATE: 12/27/2020 DISCHARGE DATE: ATTENDING MD: BOB MCCAULEY : AGE: 75 MARITAL STATUS: S DC PLAN ID: [id number] FACILITY: [facility] PRINTED ON: 01/08/21 16:00 CT All edits/amendments must be made on the electronic document DICTATION DATE: 01/08/211599 HOSPICE PLAN ADMINISTRATOR: DARRELL 01/08/21 1600 RPT#: [id number] DC DATE: STATUS: ADM IN [facility] [address] [place] [address] END OF REPORT
--- NOTE | 2021-01-08 16:15 | MORECARE ---
CASE MANAGEMENT DISCHARGE SUMMARY PATIENT: KATHRYN GAUTHIER UNIT: [id number] ADM DATE: 12/27/20 AGE: 75 : 47 SEX: M ROOM/BED: D.2207 AUTHOR: PORTIA,DOC PHYSICIAN: REFERRING PHYSICIAN: BOB ALVARADO MD DATE OF SERVICE: 01/08/21 Case Management Discharge Planning Summary COMMENTS ENTERED DATE: 01/08/21 15:58 CT COMMENT TYPE: Discharge Planning REVIEWER: Gisella Washington CM met with patient to complete initial dc planning assessment. CM educated patient on the CM role and verbal consent given by patient to complete assessment. Patient has been living at his daughters home with home health . CM discussed availability of home health, rehab services, and medical equipment. He will be going to inpatient rehab to [facility]. He was current with [facility]. He will need a wheelchair and other DME when he is discharged. CM in rehab will assess and obtain his discharge DME. IMM served and explained and SEBASTIAN signed. Patient denied known discharge needs at this time. CM will continue to follow and will assist as needed with dc plans/needs. DCP REVIEW SUMMARY ANTICIPATED D/C DATE: EXPECTED LOS : CASE STATUS: DCP Initiated INITIAL REVIEW: 12/27/2020 INITIAL REVIEWER: Gisella Washington FINAL DISCHARGE DISPOSITION: 62 : Discharged/Trans to Rehab Facility Including Distinct Units of a Hospital FINAL REVIEWER: FINAL REVIEW DATE: DCP Focus Questions & Answers QUESTION: ANSWER : PATIENT: KATHRYN GAUTHIER ENCOUNTER: [id number] MEDICAL RECORD#: [id number] ADMISSION DATE: 12/27/2020 DISCHARGE DATE: ATTENDING MD: BOB MCCAULEY : AGE: 75 MARITAL STATUS: S DC PLAN ID: [id number] FACILITY: [facility] PRINTED ON: 01/08/21 16:15 CT All edits/amendments must be made on the electronic document DICTATION DATE: 01/08/211614 PIPE COREMAKER: DARRELL 01/08/21 161 RPT#: [id number] DC DATE: STATUS: ADM IN [facility] [address] [place] [address] END OF REPORT
--- NOTE | 2021-01-08 16:32 | NUR ---
DC EDUCATION PROVIDED BOTH WRITTEN AND VERBAL. VERBALIZED UNDERSTANDING. DENIES FURTHER QUESTIONS. IV REMOVED FROM RFA WITH TIP INTACT. ATTEMPTED TO CALL PATIENT'S DAUGHTER ALMAS PER REQUEST. NO ANSWER. LEFT VOICEMAIL FOR ALMAS TO CALL BACK WHEN SHE HAS A CHANCE. REPORT CALLED TO ABDULAZIZ IN REHAB. DENIES FURTHER QUESTIONS. PATIENT DC TO REHAB WITH ALL BELONGINGS.
[2021-01-08 17:16] VITALS: BP 155/74
--- NOTE | 2021-01-08 17:16 | NUR ---
OT NOTE: PT COMPLETED BED MOBILITY WITH SBA. PT COMPLETED LB HYGIENE WITH MAX A. PT COMPLETED EOB SITTING WITH SBA. PT COMPLETED FACE HYGIENE WITH SETUP. PT REQUIRED MIN A TO DOFF/SAUL GOWN. CL IN REACH..ALARM ON. [phone] THANK YOU,JESSICA LONDONO
--- NOTE | 2021-01-08 17:42 | NUR ---
SPOKE WITH ALMAS, PATIENT'S DAUGHTER TO NOTIFY OF TXFR TO REHAB AND NEW ROOM NUMBER. DENIES QUESTIONS.
--- NOTE | 2021-01-11 09:47 | MORECARE ---
CASE MANAGEMENT DISCHARGE SUMMARY PATIENT: KATHRYN GAUTHIER UNIT: [id number] ADM DATE: 12/27/20 AGE: 75 : 47 SEX: M ROOM/BED: D.2207 AUTHOR: PORTIA,DOC PHYSICIAN: REFERRING PHYSICIAN: BOB ALVARADO MD DATE OF SERVICE: 01/11/21 Case Management Discharge Planning Summary COMMENTS ENTERED DATE: 01/08/21 15:58 CT COMMENT TYPE: Discharge Planning REVIEWER: Gisella Washington CM met with patient to complete initial dc planning assessment. CM educated patient on the CM role and verbal consent given by patient to complete assessment. Patient has been living at his daughters home with home health . CM discussed availability of home health, rehab services, and medical equipment. He will be going to inpatient rehab to [facility]. He was current with [facility]. He will need a wheelchair and other DME when he is discharged. CM in rehab will assess and obtain his discharge DME. IMM served and explained and SEBASTIAN signed. Patient denied known discharge needs at this time. CM will continue to follow and will assist as needed with dc plans/needs. DCP REVIEW SUMMARY ANTICIPATED D/C DATE: EXPECTED LOS : CASE STATUS: DCP Initiated INITIAL REVIEW: 12/27/2020 INITIAL REVIEWER: Gisella Washington FINAL DISCHARGE DISPOSITION: 62 : Discharged/Trans to Rehab Facility Including Distinct Units of a Hospital FINAL REVIEWER: FINAL REVIEW DATE: DCP Focus Questions & Answers QUESTION: ANSWER : PATIENT: KATHRYN GAUTHIER ENCOUNTER: [id number] MEDICAL RECORD#: [id number] ADMISSION DATE: 12/27/2020 DISCHARGE DATE: 01/08/2021 ATTENDING MD: BOB MCCAULEY : AGE: 75 MARITAL STATUS: S DC PLAN ID: [id number] FACILITY: [facility] PRINTED ON: 01/11/21 9:47 CT All edits/amendments must be made on the electronic document DICTATION DATE: 01/11/21946 VP ANCILLARY: DARRELL 01/11/21946 RPT#: [id number] DC DATE:01/08/21 STATUS: DIS IN [place] [place] [place] [address] END OF REPORT
--- NOTE | 2021-01-12 12:45 | MORECARE ---
CASE MANAGEMENT DISCHARGE SUMMARY PATIENT: KATHRYN GAUTHIER UNIT: [id number] ADM DATE: 12/27/20 AGE: 75 : 47 SEX: M ROOM/BED: D.2207 AUTHOR: PORTIA,DOC PHYSICIAN: REFERRING PHYSICIAN: BOB ALVARADO MD DATE OF SERVICE: 01/12/21 Case Management Discharge Planning Summary COMMENTS ENTERED DATE: 01/08/21 15:58 CT COMMENT TYPE: Discharge Planning REVIEWER: Gisella Washington CM met with patient to complete initial dc planning assessment. CM educated patient on the CM role and verbal consent given by patient to complete assessment. Patient has been living at his daughters home with home health . CM discussed availability of home health, rehab services, and medical equipment. He will be going to inpatient rehab to [facility]. He was current with [facility]. He will need a wheelchair and other DME when he is discharged. CM in rehab will assess and obtain his discharge DME. IMM served and explained and SEBASTIAN signed. Patient denied known discharge needs at this time. CM will continue to follow and will assist as needed with dc plans/needs. DCP REVIEW SUMMARY ANTICIPATED D/C DATE: EXPECTED LOS : CASE STATUS: DCP Initiated INITIAL REVIEW: 12/27/2020 INITIAL REVIEWER: Gisella Washington FINAL DISCHARGE DISPOSITION: 62 : Discharged/Trans to Rehab Facility Including Distinct Units of a Hospital FINAL REVIEWER: FINAL REVIEW DATE: DCP Focus Questions & Answers QUESTION: ANSWER : PATIENT: KATHRYN GAUTHIER ENCOUNTER: [id number] MEDICAL RECORD#: [id number] ADMISSION DATE: 12/27/2020 DISCHARGE DATE: 01/08/2021 ATTENDING MD: BOB MCCAULEY : AGE: 75 MARITAL STATUS: S DC PLAN ID: [id number] FACILITY: [facility] PRINTED ON: 01/12/21 12:45 CT All edits/amendments must be made on the electronic document DICTATION DATE: 01/12/211244 REAL ESTATE MANAGER: DARRELL 01/12/21 1245 RPT#: [id number] DC DATE:01/08/21 STATUS: DIS IN [address] [id number] [place] [address] END OF REPORT
== END 2021-01-08 17:42 | DRG 907 ==
LOC: D.ER 23:34 → D.MS 12-27 01:39
PROVIDERS: Emergency Medicine; Family Medicine; Orthopaedic Surgery; Student in an Organized Health Care Education/Training Program; ADMIT Family Medicine; ATTEND Family Medicine
PROC: 0Y6H0Z1 Detachment at Right Lower Leg, High, Open Approach (ICD-10-PCS; 2020-12-31)
PROC: 0Y6J0Z1 Detachment at Left Lower Leg, High, Open Approach (ICD-10-PCS; principal; 2020-12-31 11:00)
PROC: 0YQHXZZ Repair Right Lower Leg, External Approach (ICD-10-PCS; 2021-01-04)
PROC: 0YQJXZZ Repair Left Lower Leg, External Approach (ICD-10-PCS; 2021-01-04)
DX: T34.822A Frostbite with tissue necrosis of left foot, initial encounter (principal); E43 Unspecified severe protein-calorie malnutrition; E87.1 Hypo-osmolality and hyponatremia; L03.116 Cellulitis of left lower limb; L03.115 Cellulitis of right lower limb; I96 Gangrene, not elsewhere classified; M86.172 Other acute osteomyelitis, left ankle and foot; M86.171 Other acute osteomyelitis, right ankle and foot; Z68.1 Body mass index [BMI] 19.9 or less, adult; T34.821A Frostbite with tissue necrosis of right foot, initial encounter; D50.9 Iron deficiency anemia, unspecified

== ENCOUNTER 2021-01-08 17:59 | Inpatient (IN) | payer MEDICARE ==
[~2021-01-08] VITALS: Ht 188 cm; Wt 72.6 kg
[~2021-01-08 17:59] MED LIST changes: +HYDROCODONE-AC1 EAC2 PO
[2021-01-08 18:21] VITALS: BP 145/72; BMI 20.5
[2021-01-08 20:07] VITALS: BP 145/72
--- NOTE | 2021-01-08 21:46 | NUR ---
AWAKE AND ALERT. RESTING IN BED WITH RESPIRATIONS UNLABORED. DRESSINGS INTACT TO BILATERAL BKA'S. 4 DIGITS ON RIGHT HAND BLACK AND 3 DIGITS ON LEFT HAND BLACK RELATED TO URBINA BITE INJURY. NO ACUTE DISTRESS NOTED. CALL LIGHT IN REACH.
--- NOTE | 2021-01-09 05:21 | NUR ---
QUIET HOURS. NO ACUTE CHANGES IN CONDITION THIS SHIFT. RESTING IN BED WITH NO DISTRESS NOTED.
[2021-01-09 07:00] VITALS: BP 146/72
[2021-01-09 07:07] LABS: ALKALINE PHOSPHATASE 60 U/L (30-120); ALT (SGPT) 20 U/L (10-68); BILIRUBIN - TOTAL 0.38 mg/dL (0.2-1.3); CALC OSMOLALITY 277 mosm/kg (275-300); CALCIUM 8.4 mg/dL (8.5-10.1); CARBON DIOXIDE 28.6 mmol/L (21.0-32.0); CHLORIDE - SERUM 105 mmol/L (98-107); CREATININE - SERUM 0.8 mg/dL (0.6-1.3); GLUCOSE 98 mg/dL (74-106); POTASSIUM - SERUM 3.6 mmol/L (3.5-5.1); PROTEIN - SERUM 5.7 g/dL (6.4-8.2); SODIUM 140 mmol/L (136-145); UREA NITROGEN 9 mg/dL (7-18); eGFR NON AFRICAN AMERICAN > 90 mL/min (90-120)
[2021-01-09 07:47] LABS: BASOPHILS 0.3 % (0-2); EOSINOPHILS 2.4 % (0-7); HEMATOCRIT 30.6 % (42.0-54.0); HEMOGLOBIN 10.1 g/dL (13.5-17.5); LYMPHOCYTES 19.1 % (15-50); MCH 26.1 pg (26.0-34.0); MCHC 32.9 g/dL (31.0-37.0); MCV 79.4 fL (80.0-100.0); MEAN PLATELET VOLUME 7.6 fL (7.4-10.4); MONOCYTES 12.2 % (2-11); PLATELET COUNT 340 10x3/uL (130-400); RBC 3.86 10x6/uL (4.20-6.10); RDW 16.8 % (11.5-14.5)
[2021-01-09 13:17] VITALS: Ht 188 cm; Wt 72.6 kg
--- NOTE | 2021-01-09 14:34 | NUR ---
HAD LARGE BM IN BEDPAN. IS CONT OF B/B. FINGERTIPS BLACK TO BOTH HANDS. DSG INTACT TO BOTH STUMPS. DSG TO COCCYX IN PLACE. ENCOURAGED TO STAY OFF BOTTOM AND LAY ON SIDES. CALL LIGHT IN REACH.
[2021-01-09 19:00] VITALS: BP 167/76
--- NOTE | 2021-01-09 19:43 | NUR ---
RESTING IN BED, NO DISTRESS NOTED, FINGERS TIPS BLACK, CONT TO MONITOR
--- NOTE | 2021-01-10 01:00 | NUR ---
RESTING IN BED, EYES CLOSED, NO DISTRESS NOTED
[2021-01-10 07:00] VITALS: BP 147/76
--- NOTE | 2021-01-10 09:00 | NUR ---
SITTING ON SIDE OF BED EATING BREAKFAST. DENIES PAIN OR NEEDS. BLE STUMPS STILL WRAPED IN DSG AND WILFRIDO WRAP. USES URINAL IN BED. REMINDED PT TO STAY OF BOTTOM TO HELP HEAL SKIN. CALL LIGHT IN REACH. BED IN LOWEST POSITION. SIDE RAILS UP X2.
--- NOTE | 2021-01-10 20:05 | NUR ---
RESTING IN BED, NO DISTRESS NOTED, EYES CLOSED, CONT TO MONITOR
[2021-01-10 21:13] VITALS: BP 153/93
[2021-01-11 06:02] LABS: CALC OSMOLALITY 277 mosm/kg (275-300); CARBON DIOXIDE 29.5 mmol/L (21.0-32.0); CHLORIDE - SERUM 104 mmol/L (98-107); CREATININE - SERUM 0.8 mg/dL (0.6-1.3); GLUCOSE 106 mg/dL (74-106); POTASSIUM - SERUM 3.9 mmol/L (3.5-5.1); SODIUM 139 mmol/L (136-145); eGFR NON AFRICAN AMERICAN > 90 mL/min (90-120)
[2021-01-11 06:07] LABS: BASOPHILS 0.6 % (0-2); EOSINOPHILS 3.1 % (0-7); HEMATOCRIT 32.2 % (42.0-54.0); HEMOGLOBIN 10.6 g/dL (13.5-17.5); LYMPHOCYTES 19.7 % (15-50); MCH 26.1 pg (26.0-34.0); MCHC 32.9 g/dL (31.0-37.0); MCV 79.5 fL (80.0-100.0); MEAN PLATELET VOLUME 7.6 fL (7.4-10.4); MONOCYTES 11.8 % (2-11); NEUTROPHILS 64.8 % (40-80); RBC 4.05 10x6/uL (4.20-6.10); RDW 16.9 % (11.5-14.5); WBC 7.6 10x3/uL (4.8-10.8)
[2021-01-11 06:08] LABS: UREA NITROGEN 12 mg/dL (7-18)
[2021-01-11 06:10] LABS: PLATELET COUNT 424 10x3/uL (130-400)
[2021-01-11 07:26] VITALS: BP 143/80
--- NOTE | 2021-01-11 07:49 | NUR ---
SITTING UP IN BED FOR BREAKFAST. DENIES PAIN. DSG TO STUMPS IN PLACE. MUMBLES AT TIMES AND SPEECH IS DIFFIULT TO UNDERSTAND. CALL LIGHT IN REACH
--- NOTE | 2021-01-11 20:03 | NUR ---
AWAKE AND ALERT. RESTING IN BED WITH RESPIRATIONS UNLABORED. NO DISTRESS NOTED. CALL LIGHT IN REACH.
[2021-01-11 20:30] VITALS: BP 148/93
--- NOTE | 2021-01-12 06:31 | NUR ---
QUEIT HOURS. NO ACUTE CHANGES IN CONDITION THIS SHIFT. RESTING IN BED WITH NO DISTRESS NOTED.
[2021-01-12 08:40] VITALS: BP 145/80
--- NOTE | 2021-01-12 15:00 | NUR ---
Nutrition Follow-up: Diet: Regular PO intake: he ate 100% of breakfast, no other PO recorded in EMR at this time. He states that his appetite is "pretty good" and he had eaten most of his lunch tray at time of my visit. Last BM: 01/10/21 Wt: 160# (01/09/21) Meds noted: probiotics Labs reviewed Skin: stage II PU to left buttocks Recommend: -Continue current diet. Will continue to honor food preferences. -RD will continue to monitor PO intake and wt trend. -Will add chocolate Boost for more protein. -RD will re-assess on 01/15/21.
--- NOTE | 2021-01-12 20:00 | NUR ---
AWAKE AND ALERT. RESTING IN BED WITH RESPIRATIONS UNLABORED. NO DISTRESS NOTED. CALL LIGHT IN REACH.
[2021-01-12 20:25] VITALS: BP 145/76
--- NOTE | 2021-01-13 04:56 | NUR ---
AWAKE AND ALERT. USED BEDPAN AND HAD A LARGE BM. RESTING NOW WITH NO DISTRESS NOTED.
[2021-01-13 07:38] LABS: BASOPHILS 0.5 % (0-2); EOSINOPHILS 3.4 % (0-7); HEMATOCRIT 31.6 % (42.0-54.0); HEMOGLOBIN 10.3 g/dL (13.5-17.5); LYMPHOCYTES 21.8 % (15-50); MCH 26.1 pg (26.0-34.0); MCHC 32.6 g/dL (31.0-37.0); MCV 80.1 fL (80.0-100.0); MEAN PLATELET VOLUME 7.5 fL (7.4-10.4); MONOCYTES 13.4 % (2-11); NEUTROPHILS 60.9 % (40-80); PLATELET COUNT 463 10x3/uL (130-400); RBC 3.95 10x6/uL (4.20-6.10); WBC 7.8 10x3/uL (4.8-10.8)
[2021-01-13 07:46] VITALS: BP 126/60
[2021-01-13 07:54] LABS: CALC OSMOLALITY 279 mosm/kg (275-300); CALCIUM 9.1 mg/dL (8.5-10.1); CARBON DIOXIDE 27.2 mmol/L (21.0-32.0); CHLORIDE - SERUM 103 mmol/L (98-107); CREATININE - SERUM 0.8 mg/dL (0.6-1.3); GLUCOSE 90 mg/dL (74-106); POTASSIUM - SERUM 4.4 mmol/L (3.5-5.1); SODIUM 139 mmol/L (136-145); UREA NITROGEN 17 mg/dL (7-18); eGFR NON AFRICAN AMERICAN > 90 mL/min (90-120)
--- NOTE | 2021-01-13 08:00 | NUR ---
SHIFT ASSMT COMPLETED.
--- NOTE | 2021-01-13 15:49 | NUR ---
CARE TEAM MEETING: PATIENT ADMITTED TO REHAB FROM ACUTE FLOOR. WILL CONTINUE TO FOLLOW WITH PATIENT AND WILL ASSIST WITH DISCHARGE NEEDS. AT THIS TIME DISCHARGE DESTINATION IS UNCLEAR. PATIENT WILL BE RA AT NEXT MEETING.
--- NOTE | 2021-01-13 20:02 | NUR ---
AWAKE AND ALERT. RESTING IN BED WITH RESPIRAITONS UNLABORED. DRESSINGS INTACT TO BILATERAL BKA'S. NO DISTRESS NOTED. CALL LIGHT IN REACH.
[2021-01-13 20:45] VITALS: BP 152/92
--- NOTE | 2021-01-14 05:17 | NUR ---
QUIET HOURS. NO ACUTE CHANGES IN CONDITION THIS SHIFT. RESTING IN BED WITH RESPIRATIONS UNLABORED. NO DISTRESS NOTED.
--- NOTE | 2021-01-14 08:00 | NUR ---
PATIENT IS ALERT/OREINT. SITTING UP IN A WHEELCHAIR AT BEDSIDE TO EAT BREAKFAST. CHAIR ALARM ON. VOICES NO NEEDS AT THIS TIME. WILL CONTINUE WITH PLAN OF CARE
[2021-01-14 08:39] VITALS: BP 141/78
--- NOTE | 2021-01-14 10:30 | NUR ---
PATIENT IN REHAB ROOM. WORKING WITH PHYSICAL THERAPIST. DENIES ANY PAIN/DISC AT THIS TIME.
--- NOTE | 2021-01-14 20:27 | NUR ---
SPOKE TO [place] PT DAUGHTER IN REGARDS TO FINDING PT SMOKING IN HIS ROOM. ADVISED MADISON THAT THIS NURSE REMOVED 3 LIGHTERS, 2 1/2 CIGARETTES, VAP PEN, VAP JUICE, AND POCKET KNIFE FROM PT ROOM AND PLACED IN ZIP BAG AT NURSE STATION LOCKED UP IN PT CASSETTE. PT DAUGHTER ADVISED THAT A NICOTINE PATCH WOULD NOT HELP PT D/T BEING A LONG TIME CHRONIC SMOKER. DAUGHTER MADISON ASKED IF HE COULD POSSIBLY VAP OUTSIDE THIS NURSE INFORMED DAUGHTER THAT IT WAS A SMOKE FREE CAMPUS. DAUGHTER VERBALIZED UNDERSTANDING.
[2021-01-14 21:35] VITALS: BP 146/77
--- NOTE | 2021-01-14 23:33 | NUR ---
PT IN BED WATCHING TV, A&O, NO NEEDS NOTED, FLUIDS/CL WITHIN REACH, FAMILY IN ROOM
[2021-01-15 07:12] LABS: BASOPHILS 0.4 % (0-2); EOSINOPHILS 3.2 % (0-7); HEMATOCRIT 34.3 % (42.0-54.0); LYMPHOCYTES 28.7 % (15-50); MCH 25.7 pg (26.0-34.0); MCHC 32.1 g/dL (31.0-37.0); MCV 80.1 fL (80.0-100.0); MEAN PLATELET VOLUME 7.8 fL (7.4-10.4); NEUTROPHILS 55.7 % (40-80); PLATELET COUNT 483 10x3/uL (130-400); RBC 4.29 10x6/uL (4.20-6.10); RDW 16.6 % (11.5-14.5); WBC 6.9 10x3/uL (4.8-10.8)
[2021-01-15 07:34] LABS: CALC OSMOLALITY 278 mosm/kg (275-300); CALCIUM 9.5 mg/dL (8.5-10.1); CARBON DIOXIDE 28.3 mmol/L (21.0-32.0); CHLORIDE - SERUM 103 mmol/L (98-107); CREATININE - SERUM 0.8 mg/dL (0.6-1.3); GLUCOSE 98 mg/dL (74-106); POTASSIUM - SERUM 4.1 mmol/L (3.5-5.1); SODIUM 139 mmol/L (136-145); UREA NITROGEN 16 mg/dL (7-18); eGFR NON AFRICAN AMERICAN > 90 mL/min (90-120)
[2021-01-15 08:00] VITALS: BP 145/89
--- NOTE | 2021-01-15 13:16 | NUR ---
Nutrition Re-Assessment Diet: Regular + Boost BID PO intake: ~61% average x last 9 meals. He ate 100% of breakfast and lunch today. He was asleep at time of my visit but I noted that he has been drinking Boost. He had an empty package of chips ahoy cookies on bedside table as well. Last BM: 01/13/21 Wt: 160# (01/09/21) Meds noted: probiotics Labs reviewed Estimated nutrition needs: 1800-2160kcal (25-30 Act), 86-100gms protein (1.2-1.4gms/kg), 1800-2160mL fluid (or per MD) Nutrition diagnosis: Increased protein needs r/t increased demand for healing AEB wounds/poor skin integrity to residual limbs and fingers. Nutrition goals: -PO intake =/>75% meals -Meet fluid needs -Stable dry weight DHS -Improved skin integrity Recommendations/Interventions: -Recommend continue current diet and oral nutrition supplements. Will continue to honor food preferences within diet restrictions. -RD will continue to monitor PO Intake and wt trend. -RD will follow-up within 7 days.
--- NOTE | 2021-01-15 18:00 | NUR ---
ASSESSMENT COMPLETED EARLIER THIS SHIFT. PATIENT HAS BEEN UP IN & PARTICIPATED IN THERAPY. HAS NECROTIC FINGERS TO B/L HANDS D/T URBINA BITE. HAS B/L LE AMPUTATIONS D/T FROSTBITE & DRSG INTACT TO AREAS. CONTINUE TO MONITOR, CONT CURRENT PLAN OF CARE.
--- NOTE | 2021-01-15 19:35 | NUR ---
AWAKE AND ALERT. RESTING IN BED WITH RESPIRATIONS UNLABORED. NO DISTRESS NOTED. DRESSINGS INTACT TO BILATERAL BKA'S. CALL LIGHT IN REACH.
[2021-01-15 19:55] VITALS: BP 147/94
--- NOTE | 2021-01-16 05:04 | NUR ---
QUIET HOURS. NO ACUTE CHANGES IN CONDITION THIS SHIFT. BILATERAL BKA DRESSINGS DRY AND INTACT. NO DISTRESS NOTED.
[2021-01-16 07:00] VITALS: BP 148/80
--- NOTE | 2021-01-16 08:00 | NUR ---
SHIFT ASSMT COMPLETED.UP TO SITTING ON SIDE OF BED.
[2021-01-16 19:00] VITALS: BP 137/74
--- NOTE | 2021-01-16 20:14 | NUR ---
RESTING IN BED, NO DISTRESS NOTED, DRESSING TO BOTH LOWER LEGS DRY AND INTACT, CONT TO MONITOR PAIN AND SAFETY
--- NOTE | 2021-01-17 13:16 | RHP ---
PATIENT: KATHRYN GAUTHIER MEDICAL RECORD: [id number] ACCOUNT: [id number] LOCATION:[facility]1115 : 49 ADMISSION DATE: 01/08/21 REHABILITATION HISTORY AND PHYSICAL EXAMINATION POST ADMISSION PHYSICIAN EXAMINATION POST ADMISSION PHYSICAL EXAMINATION AND HISTORY AND PHYSICAL ADMITTING DIAGNOSIS: Bilateral BKA. HISTORY OF PRESENT ILLNESS: The patient admitted secondary to bilateral BKA, a 75-year-old gentleman with a frostbite injury to bilateral feet and toes. He sustained it in September, was seen at the hospital at that time, surgery or amputation was recommended, but he refused. Dr. Villagomez has been following him. He had a foul odor coming from his feet and started to have more drainage. He has been having fever as well. He was sent to the Emergency Room and taken to the OR by Dr. Villagomez, who did amputation of his toes, but there were still areas of deeper infection and exposed bone. He was admitted with frostbite and gangrene of the toes with cellulitis, microcytic anemia, and hyponatremia. Orthopedic was consulted. They did below the knee amputations of his right lower extremity. He continued to run a temperature, was taken back on 12/31/2020 for a right sliwi-lsu-lymi amputation. On 01/01/2021, he grew out E. coli, Serratia fonticola, and Proteus mirabilis. He was placed on Zosyn and vancomycin. On 01/05/2021, he was taken back to the OR for a left rriwk-dqv-fmsn amputation. He does have wound VACs on both extremities. He is currently postop day #5. Prior to this frostbite, he was completely independent with ADLs and ambulation. He has been recently ambulating with a rolling walker. He will require intensive therapy from interdisciplinary team to get him back to a level of function that he can go home on. The patient is currently being monitored for lab values, medication adjustments, pain control, decreased activity tolerance, decreased strength, proximal muscle weakness, balance deficits, gait disturbance, impaired mobility, dyspnea on exertion, high fall risk, and self-care deficits. These are all barriers to his discharge home. COMORBIDITIES: Include frostbite of both feet, cellulitis of both feet, gangrene necrosis of both feet, frostbite of hands, bilateral foot infection, microcytic anemia. PAST MEDICAL HISTORY: Significant for weakness. PAST SURGICAL HISTORY: None. ALLERGIES: No known drug allergies. CURRENT MEDICATIONS: He is on Floranex daily, Plavix 75 mg daily, Protonix 40 mg daily, Colace 100 mg b.i.d., Robeline 7.5/325 two tabs q.4 hours p.r.n., Tylenol 650 q.4 hours as needed. HABITS: No current alcohol or tobacco use. FAMILY HISTORY: Noncontributory. SOCIAL HISTORY: The patient hopes to return back home and get back to his prior level of functioning. HISTORY AND PHYSICAL [id number] KATHRYN GAUTHIER REVIEW OF SYSTEMS: GENERAL: Does complain of weakness and fatigue. HEENT: Denies cold, cough or congestion. CARDIOVASCULAR: Denies any chest pain. PHYSICAL EXAMINATION: VITAL SIGNS: Stable, afebrile. GENERAL: Well-developed gentleman, in no acute distress upon exam. HEENT: Normal, atraumatic. Mucosa moist. NECK: Supple. No lymphadenopathy. LUNGS: Clear at this time. No wheezing or rales. HEART: Regular rate and rhythm. No murmurs, rubs or gallops. ABDOMEN: Soft, benign, nondistended. Positive bowel sounds times 4. EXTREMITIES: Bilateral lower extremity ahpvb-bod-ikrk amputations are noted. He has also got frostbite injuries to both of his hands and fingers. LABORATORY DATA: White count is 8000, H&H of 10 and 30, and platelet count is noted to be 340. His sodium is 140, potassium 3.6, BUN and creatinine of 9 and 0.8. Blood sugar was noted to be 98. ASSESSMENT: This is a 75-year-old gentleman admitted to the rehab with a working diagnosis is bilateral espnq-jpt-pqyh amputation secondary to frostbite injuries. The patient has potential to make improvement. We instituted the following multidisciplinary therapies including, not limited to physical, occupational, respiratory, speech, nutritional services, prosthetics and orthotics. Given his complex medical condition and risks for more complications, rehabilitation services cannot be provided at a low level of care such as [facility] facility. PLAN: 1. Admit to [facility] for inpatient therapy to include the following disciplines; A. Physical therapy to improve gait, all transfer skills and bed mobility to a modified independent level. B. Occupational therapy to improve activities of daily living. C. Case management to help with discharge planning and placement options. D. Nutrition to assist with nutritional needs. E. Rehabilitation nursing to assist in monitoring the patient's underlying medical conditions and to assist with any type of bowel or bladder management. 2. The patient's current medication and medical care will be continued. 3. Placed on standard fall precautions. 4. We will watch for signs of problems with his stumps. 5. I am going to get prosthetics involved. 6. We will see again in the a.m. TRANSINT:[id number] Voice Confirmation ID: [id number] DOCUMENT ID: [id number] 01/15/2021 Edited liz EID. STANTON notes whether there has been none or any medical/functional change since admission: - No change since preadmission screen. HISTORY AND PHYSICAL [id number] KATHRYN GAUTHIER attests patient continues to be appropriate for IRF: - Continues to be appropriate. SABA SANCHEZ MD at 1316 CC: [id number] DICTATION DATE: 01/09/21 1343 SWING TYPE LATHE OPERATOR: 01/09/21 [id number] ADM IN [facility] [address] [place] [address]
[2021-01-17 19:00] VITALS: BP 137/80
--- NOTE | 2021-01-17 22:19 | NUR ---
RESTING IN BED, NO DISTRESS NOTED, EYES CLOSED, TOOK PO MEDS WITH EASE TONIGHT, DRESSING INTACT TO BOTH LOWER LEGS, CONT TO MONITOR SAFETY
--- NOTE | 2021-01-18 08:15 | NUR ---
PATIENT IS ALERT/ORIENT. SITTING UP IN A WHEELCHAIR TO EAT BREAKFAST. VOICES NO NEEDS AT THIS TIME. CALL LIGHT WITHIN REACH. WILL CONTINUE WITH PLAN OF CARE
[2021-01-18 08:22] VITALS: BP 141/90
--- NOTE | 2021-01-18 11:00 | NUR ---
PATIENT IN REHAB ROOM. WORKING WITH PHYSICAL THERAPIST. TRANSFERS FROM BED TO WHEELCHAIR WITH SLIDING BOARD. DENIES ANY PAIN/DISC AT THIS TIME.
--- NOTE | 2021-01-18 17:00 | NUR ---
DR SANCHEZ INTO SEE PATIENT. NEW ORDERS RECEIVED
--- NOTE | 2021-01-18 18:33 | NUR ---
I have reviewed this patient and I concur with the Shift Assessment completed by the Licensed Practical Nurse today this shift.
--- NOTE | 2021-01-18 19:27 | NUR ---
AWAKE AND ALERT. RESTING IN BED WITH RESPIRATIONS UNLABORED. DRESSINGS INTACT TO BILATERAL BKA'S. NO DISTRESS NOTED. CALL LIGHT IN REACH.
[2021-01-18 20:51] VITALS: BP 134/77
[2021-01-19 08:23] VITALS: BP 137/78
[2021-01-19 22:01] VITALS: BP 134/67
--- NOTE | 2021-01-19 23:05 | NUR ---
AWAKE AND ALERT. RESTING IN BED WITH RESPIRATIONS UNLABORED. DRESSINGS INTACT TO BILATERAL BKA'S. NO DISTRESS NOTED. CALL LIGHT IN REACH.
--- NOTE | 2021-01-20 05:09 | NUR ---
QUIET HOURS. NO ACUTE CHANGES IN CONDITION THIS SHIFT. RESTING IN BED WITH NO DISTRESS NOTED.
[2021-01-20 07:29] LABS: BASOPHILS 0.5 % (0-2); EOSINOPHILS 2.6 % (0-7); HEMATOCRIT 33.7 % (42.0-54.0); LYMPHOCYTES 30.4 % (15-50); MCH 25.8 pg (26.0-34.0); MCHC 32.5 g/dL (31.0-37.0); MCV 79.3 fL (80.0-100.0); MEAN PLATELET VOLUME 8.1 fL (7.4-10.4); MONOCYTES 11.5 % (2-11); RBC 4.25 10x6/uL (4.20-6.10); WBC 5.5 10x3/uL (4.8-10.8)
[2021-01-20 07:36] LABS: PLATELET COUNT 370 10x3/uL (130-400)
[2021-01-20 07:46] LABS: CALC OSMOLALITY 275 mosm/kg (275-300); CALCIUM 9.4 mg/dL (8.5-10.1); CARBON DIOXIDE 28.3 mmol/L (21.0-32.0); CHLORIDE - SERUM 102 mmol/L (98-107); CREATININE - SERUM 0.8 mg/dL (0.6-1.3); GLUCOSE 86 mg/dL (74-106); POTASSIUM - SERUM 4.4 mmol/L (3.5-5.1); SODIUM 138 mmol/L (136-145); UREA NITROGEN 16 mg/dL (7-18); eGFR NON AFRICAN AMERICAN > 90 mL/min (90-120)
[2021-01-20 08:06] VITALS: BP 136/77
--- NOTE | 2021-01-20 15:29 | NUR ---
CARE TEAM MEETING: PATIENT DOING VERY WELL IN THERAPY. HIS TENATIVE DISCHARGE DATE IS 01/22/21. WILL CONTINUE TO FOLLOW WITH PATIENT.
--- NOTE | 2021-01-20 15:32 | NUR ---
LEFT MESSAGE ON PATIENT DAUGHTER MADISON PHONE TO CALL ME, HER NUMBER IS [phone]. WILL CONTINUE TO FOLLOW WITH PATIENT.
[2021-01-20 19:33] VITALS: BP 138/67
--- NOTE | 2021-01-20 20:09 | NUR ---
RESTING IN BED, NO DISTRESS NOTED, DRESSINGS TO BILATERAL STUMPS, CONT TO MONITOR PAIN AND CONTINENCE
--- NOTE | 2021-01-21 08:00 | NUR ---
SHIFT ASSMT COMPLETED.
[2021-01-21 08:09] VITALS: BP 134/82
--- NOTE | 2021-01-21 14:18 | NUR ---
spoke with Yaneth via phone and advised the vape cigarette was in the patients tray table and it will now be in a bag with the regional flatbed truck driver and pack of cigarettes in his cassette at nurses station for her to brick picker tonight. Yaneth verified that she took a regional flatbed truck driver and a pocket knife that was in the cassette and took them home.
--- NOTE | 2021-01-21 20:00 | NUR ---
AWAKE AND ALERT. RESTING IN BED WITH RESPIRAITONS UNLABORED. DRESSINGS INTACT TO BILATERAL BKA'S. NO DISTRESS NOTED. CALL LIGHT IN REACH.
[2021-01-21 22:00] VITALS: BP 125/81
--- NOTE | 2021-01-22 05:18 | NUR ---
QUIET HOURS. NO ACUTE CHANGES IN CONDITION THIS SHIFT. UP EARLY AND DRINKING COFFEE. DRESSINGS INTACT TO BILATERAL BKA'S. CALL LIGHT IN REACH.
[2021-01-22 08:00] VITALS: BP 143/78
[2021-01-22] MEDS ORDERED: HYDROCODONE-AC1 EAC2 PO (08:47)
[2021-01-22] MEDS ORDERED: PROTONIX40 MG PO (08:47)
--- NOTE | 2021-01-22 09:57 | NUR ---
PATIENT HAS BEEN ACCEPTED TO THE [facility], NO HOME HEALTH OR DME NEEDED AT THIS TIME. APPOINTMENTS WITH DR. RAMOS AND DR. ALVARADO WILL BE MADE AT TIME OF DISCHARGE FROM THE FACILITY. SEBASTIAN SIGNED, IMM SERVED AND EXPLAINED, ONE GIVEN TO PATIENT AND ONE FILED IN CHART.DISCHARGE INSTRUCTIONS HAS BEEN FAXED TO PCP AND TO SNF. PATIENT DISCHARGING TO THE [facility] TODAY, COMPARE DATA HAS BEEN REVIEWED AND PATIENT VOICED UNSDERSTANDING.
== END 2021-01-22 11:00 | DRG 560 ==
LOC: D.REHAB 17:59
PROVIDERS: ADMIT Emergency Medicine; ATTEND Emergency Medicine
DX: Z47.81 Encounter for orthopedic aftercare following surgical amputation (principal); I96 Gangrene, not elsewhere classified; L03.116 Cellulitis of left lower limb; L03.115 Cellulitis of right lower limb; E87.1 Hypo-osmolality and hyponatremia; Z89.512 Acquired absence of left leg below knee; Z89.511 Acquired absence of right leg below knee; X31.XXXD Exposure to excessive natural cold, subsequent encounter; D50.9 Iron deficiency anemia, unspecified; I73.9 Peripheral vascular disease, unspecified